=== PATIENT | male | born 1945 | race Caucasian/White ===

== ENCOUNTER 2020-04-14 16:38 | Inpatient (IN) ==
[2020-04-14] MEDS ORDERED: 0.9 % Sodium Chloride 1,000 ML IVC ONE (16:48)
[2020-04-14 17:28] LABS: Basophils % 0.2 %; Hematocrit 36.4 % (37.5-50.1); Hemoglobin 11.2 g/dL (12.9-16.9); Immature Granulocytes % 0.7 % (0-4); Lymphocytes # 0.2 K/mcL (0.6-4.6); Lymphocytes % 2.1 %; Mean Corpuscular HGB Conc 30.8 g/dL (31.6-35.5); Mean Corpuscular Hemoglobin 26.7 pg (28.0-33.3); Mean Corpuscular Volume 86.7 fL (83.0-100.0); Mean Platelet Volume 9.9 fL (9.4-12.4); Monocytes # 0.5 K/mcL (0.0-1.3); Monocytes % 4.4 %; Neutrophils # 9.5 K/mcL (1.6-8.9); Platelet Count 129 K/mcL (140-400); Red Cell Distribution Width 16.2 % (11.5-14.5); Segmented Neutrophils % 92.6 %
[2020-04-14 17:29] LABS: White Blood Count 10.3 K/mcL (4.3-11.1)
[2020-04-14 17:36] LABS: Bacteria,Urine Few per hpf (None-Few); Bilirubin,Urine Negative (Negative); Blood,Urine Negative (Negative); Clarity,Urine Clear (Clear); Color,Urine Yellow (Yellow); Glucose,Urine (UA) 300 mg/dL (Normal); Hyaline Casts,Urine Few per lpf (None Seen); Ketones,Urine Negative (Negative); Leukocyte Esterase,Urine Negative (Negative); Nitrite,Urine Negative (Negative); Protein,Urine >=300 mg/dL (Neg-Trace); RBC,Urine 0-3 per hpf (0-3); Specific Gravity,Urine 1.017 (1.010-1.025); Squamous Epithelial Cell,Urine Few per hpf (None-Few); Urobilinogen,Urine Normal (Normal)
[2020-04-14 17:55] LABS: Alanine Aminotransferase 15 Units/L (7-52); Albumin 3.6 g/dL (3.5-5.7); Albumin/Globulin Ratio 1.2 (1.1-2.2); Alkaline Phosphatase 59 Units/L (34-104); Aspartate Amino Transferase 27 Units/L (13-39); BUN/Creatinine Ratio 17 (6-26); Bilirubin,Total 0.8 mg/dL (0.3-1.0); Blood Urea Nitrogen 36 mg/dL (8-23); Calcium 8.5 mg/dL (8.6-10.3); Carbon Dioxide 21 mEq/L (23-29); Chloride 107 mEq/L (98-107); Globulin 2.9 g/dL (2.4-3.5); Glucose 278 mg/dL (70-105); Osmolality,Calculated 308 (280-300); Potassium 3.5 mEq/L (3.5-5.1); Sodium 140 mEq/L (136-145); Total Protein 6.5 g/dL (6.4-8.9); eGFR For African Americans 36 (> 60); eGFR For Non-African Americans 30 (> 60)
[2020-04-14] MEDS ORDERED: Naloxone 0.4 MG/ML INJ IVP PRN (21:08)
[2020-04-14] MEDS ORDERED: Acetaminophen 325 MG TABLET PO PRN (22:42)
[2020-04-14 23:05] LABS: C-Reactive Protein > 300 mg/L (Less than 10)
[2020-04-15 02:55] LABS: Basophils % 0.1 %; Hematocrit 32.5 % (37.5-50.1); Hemoglobin 10.3 g/dL (12.9-16.9); Immature Granulocytes % 0.5 % (0-4); Lymphocytes # 0.2 K/mcL (0.6-4.6); Lymphocytes % 2.4 %; Mean Corpuscular HGB Conc 31.7 g/dL (31.6-35.5); Mean Corpuscular Hemoglobin 27.3 pg (28.0-33.3); Mean Corpuscular Volume 86.2 fL (83.0-100.0); Mean Platelet Volume 10.5 fL (9.4-12.4); Monocytes # 0.5 K/mcL (0.0-1.3); Monocytes % 5.3 %; Neutrophils # 9.3 K/mcL (1.6-8.9); Platelet Count 122 K/mcL (140-400); Red Blood Count 3.77 M/mcL (4.19-5.50); Red Cell Distribution Width 16.3 % (11.5-14.5); Segmented Neutrophils % 91.7 %; White Blood Count 10.1 K/mcL (4.3-11.1)
[2020-04-15 03:15] LABS: Calcium 8.5 mg/dL (8.6-10.3); Potassium 3.1 mEq/L (3.5-5.1)
[2020-04-15] MEDS ORDERED: Furosemide 40 MG TABLET PO SCH (08:00)
[2020-04-15] MEDS ORDERED: lisinopriL 20 MG TABLET PO SCH (09:00)
[2020-04-15] MEDS: Mycophenolate Sodium (DR) 180 MG TABLET.DR PO SCH ×2 (09:08→21:23)
[2020-04-15] MEDS: hydrALAZINE 25 MG TABLET PO SCH ×4 (09:08→21:23)
[2020-04-15] MEDS: allopurinoL 100 MG TABLET PO SCH (09:09)
[2020-04-15] MEDS: Insulin DETEMIR 100 UNIT/ML X5UNITS SQ SCH (09:09)
[2020-04-15] MEDS: cloNIDine HCL 0.1 MG TABLET PO SCH ×3 (09:09→21:23)
[2020-04-15] MEDS: gemfibroziL 600 MG TABLET PO SCH ×2 (09:09→21:22)
[2020-04-15] MEDS: Metoprolol 100 MG TABLET PO SCH ×2 (09:09→21:22)
[2020-04-15] MEDS: Aspirin Enteric Coated 81 MG Tablet PO SCH (09:09)
[2020-04-15] MEDS: amLODIPine 5 MG TABLET PO SCH (09:09)
[2020-04-15] MEDS: Gabapentin 100 MG CAPSULE PO SCH ×2 (09:09→21:23)
[2020-04-15] MEDS: Cholecalciferol (D-3) 1,000 UNIT (25MCG) TABLET PO SCH (09:09)
[2020-04-15] MEDS: Ammonium Lactate 30 APPL/225 GM BOTTLE TP SCH ×2 (09:10→21:30)
[2020-04-15] MEDS ORDERED: *HR* Dextrose 50 % in Water (Vial) 50 ML VIAL IVP PRN (10:38)
[2020-04-15] MEDS ORDERED: Dextrose Gel 15 GM/37.5 ML TUBE PO PRN ×2 (10:38)
[2020-04-15] MEDS ORDERED: D5% in Water 1,000 ML IVC PRN (10:38)
[2020-04-15] MEDS ORDERED: Insulin LISPRO 300 UNITS/3 ML VIAL SQ SCH ×2 (11:30→21:00)
[2020-04-15] MEDS ORDERED: 0.9 % Sodium Chloride 1,000 ML IVC SCH (16:00)
[2020-04-15] MEDS ORDERED: *HR* OxyCODONE/APAP 5/325 TABLET PO PRN (16:42)
[2020-04-15] MEDS ORDERED: Potassium Effervescent 25 MEQ TABLET.EFF PO ONE (16:44)
[2020-04-15] MEDS: Niacin (24 HR) 500 MG TAB.ER.24H PO SCH (18:06)
[2020-04-15] MEDS: *HR* Heparin 5,000 UNIT/ML VIAL SQ SCH ×2 (18:08→21:30)
[2020-04-15] MEDS: Insulin LISPRO 300 UNITS/3 ML VIAL SQ SCH ×2 (18:09→21:24)
[2020-04-16 02:07] LABS: Basophils % 0.1 %; Eosinophils % 0.1 %; Hemoglobin 9.1 g/dL (12.9-16.9); Immature Granulocytes % 1.5 % (0-4); Lymphocytes # 0.4 K/mcL (0.6-4.6); Lymphocytes % 4.3 %; Mean Corpuscular HGB Conc 30.3 g/dL (31.6-35.5); Mean Corpuscular Hemoglobin 26.2 pg (28.0-33.3); Mean Corpuscular Volume 86.5 fL (83.0-100.0); Mean Platelet Volume 10.2 fL (9.4-12.4); Monocytes # 0.5 K/mcL (0.0-1.3); Monocytes % 5.5 %; Neutrophils # 7.2 K/mcL (1.6-8.9); Platelet Count 120 K/mcL (140-400); Red Blood Count 3.47 M/mcL (4.19-5.50); Segmented Neutrophils % 88.5 %; White Blood Count 8.2 K/mcL (4.3-11.1)
[2020-04-16 02:23] LABS: Calcium 8.4 mg/dL (8.6-10.3); Potassium 3.6 mEq/L (3.5-5.1)
[2020-04-16] MEDS: *HR* Heparin 5,000 UNIT/ML VIAL SQ SCH ×3 (05:31→20:54)
[2020-04-16] MEDS: hydrALAZINE 25 MG TABLET PO SCH ×4 (09:00→20:55)
[2020-04-16] MEDS: Aspirin Enteric Coated 81 MG Tablet PO SCH (09:01)
[2020-04-16] MEDS: Gabapentin 100 MG CAPSULE PO SCH ×2 (09:01→20:54)
[2020-04-16] MEDS: Metoprolol 100 MG TABLET PO SCH ×2 (09:01→20:55)
[2020-04-16] MEDS: gemfibroziL 600 MG TABLET PO SCH ×2 (09:01→20:54)
[2020-04-16] MEDS: cloNIDine HCL 0.1 MG TABLET PO SCH ×3 (09:01→18:34)
[2020-04-16] MEDS: amLODIPine 5 MG TABLET PO SCH (09:02)
[2020-04-16] MEDS: Cholecalciferol (D-3) 1,000 UNIT (25MCG) TABLET PO SCH (09:03)
[2020-04-16] MEDS: Mycophenolate Sodium (DR) 180 MG TABLET.DR PO SCH ×2 (09:09→20:53)
[2020-04-16] MEDS: Insulin LISPRO 300 UNITS/3 ML VIAL SQ SCH ×4 (09:10→20:56)
[2020-04-16] MEDS: allopurinoL 100 MG TABLET PO SCH (09:14)
[2020-04-16] MEDS: Insulin DETEMIR 100 UNIT/ML X5UNITS SQ SCH (09:15)
[2020-04-16] MEDS: 0.9 % Sodium Chloride 1,000 ML IVC SCH ×2 (09:23→23:59)
[2020-04-16] MEDS: Ammonium Lactate 30 APPL/225 GM BOTTLE TP SCH ×2 (09:31→20:56)
[2020-04-16] MEDS: Niacin (24 HR) 500 MG TAB.ER.24H PO SCH (18:34)
[2020-04-17 02:50] LABS: Calcium 8.2 mg/dL (8.6-10.3); Potassium 3.5 mEq/L (3.5-5.1)
[2020-04-17] MEDS: *HR* Heparin 5,000 UNIT/ML VIAL SQ SCH ×2 (05:24→15:56)
[2020-04-17] MEDS: Insulin LISPRO 300 UNITS/3 ML VIAL SQ SCH ×3 (08:19→15:59)
[2020-04-17] MEDS: Mycophenolate Sodium (DR) 180 MG TABLET.DR PO SCH (10:10)
[2020-04-17] MEDS: gemfibroziL 600 MG TABLET PO SCH (10:10)
[2020-04-17] MEDS: Aspirin Enteric Coated 81 MG Tablet PO SCH (10:10)
[2020-04-17] MEDS: cloNIDine HCL 0.1 MG TABLET PO SCH ×2 (10:10→15:55)
[2020-04-17] MEDS: Metoprolol 100 MG TABLET PO SCH (10:10)
[2020-04-17] MEDS: Gabapentin 100 MG CAPSULE PO SCH (10:10)
[2020-04-17] MEDS: amLODIPine 5 MG TABLET PO SCH (10:10)
[2020-04-17] MEDS: Cholecalciferol (D-3) 1,000 UNIT (25MCG) TABLET PO SCH (10:10)
[2020-04-17] MEDS: allopurinoL 100 MG TABLET PO SCH (10:11)
[2020-04-17] MEDS: Insulin DETEMIR 100 UNIT/ML X5UNITS SQ SCH (10:11)
[2020-04-17] MEDS: hydrALAZINE 25 MG TABLET PO SCH ×2 (10:11→12:17)
[2020-04-17] MEDS: Ammonium Lactate 30 APPL/225 GM BOTTLE TP SCH (10:12)
[2020-04-17 15:38] VITALS: BP 144/68
== END 2020-04-17 17:05 | disposition short-term general hospital (02) | DRG 683 ==
LOC: EMEROOARM 16:38 → 2ANU 16:38 → SUATTDRO 04-15 16:46
PROVIDERS: ADMIT Internal Medicine; ATTEND Internal Medicine

== ENCOUNTER 2020-06-03 11:42 | Observation (INO) ==
[2020-06-03 12:29] LABS: Hemoglobin 8.1 g/dL (12.9-16.9)
[2020-06-03 12:31] LABS: Basophils # 0.1 K/mcL (0.0-0.2); Basophils % 1.1 %; Eosinophils # 0.3 K/mcL (0.0-0.6); Eosinophils % 4.8 %; Hematocrit 30.1 % (37.5-50.1); Lymphocytes # 0.6 K/mcL (0.6-4.6); Lymphocytes % 11.1 %; Mean Corpuscular HGB Conc 26.9 g/dL (31.6-35.5); Mean Corpuscular Hemoglobin 26.2 pg (28.0-33.3); Mean Corpuscular Volume 97.4 fL (83.0-100.0); Mean Platelet Volume 9.2 fL (9.4-12.4); Monocytes # 0.4 K/mcL (0.0-1.3); Monocytes % 6.9 %; Neutrophils # 3.9 K/mcL (1.6-8.9); Platelet Count 188 K/mcL (140-400); Red Blood Count 3.09 M/mcL (4.19-5.50); Red Cell Distribution Width 18.5 % (11.5-14.5); Segmented Neutrophils % 75.1 %; White Blood Count 5.2 K/mcL (4.3-11.1)
[2020-06-03 12:38] LABS: INR 1.3; Prothrombin Time 15.1 Seconds (9.4-12.1)
[2020-06-03 12:41] LABS: Activated Partial Thrombo Time 48.3 Seconds (26.0-36.0)
[2020-06-03 13:08] LABS: Alanine Aminotransferase 3 Units/L (7-52); Albumin/Globulin Ratio 0.9 (1.1-2.2); Alkaline Phosphatase 93 Units/L (34-104); Aspartate Amino Transferase 8 Units/L (13-39); BUN/Creatinine Ratio 19 (6-26); Bilirubin,Total 0.3 mg/dL (0.3-1.0); Blood Urea Nitrogen 21 mg/dL (8-23); Calcium 8.6 mg/dL (8.6-10.3); Carbon Dioxide 18 mEq/L (23-29); Chloride 108 mEq/L (98-107); Globulin 3.3 g/dL (2.4-3.5); Glucose 154 mg/dL (70-105); Osmolality,Calculated 288 (280-300); Potassium 4.3 mEq/L (3.5-5.1); Sodium 136 mEq/L (136-145); Total Protein 6.3 g/dL (6.4-8.9); Troponin I < 0.03 ng/mL (< 0.04); eGFR For African Americans > 60 (> 60); eGFR For Non-African Americans > 60 (> 60)
[2020-06-03 13:15] LABS: Platelet Estimate Normal (Normal)
[2020-06-03 13:16] LABS: Anisocytosis 1+ (Not Present)
[2020-06-03] MEDS ORDERED: Naloxone 0.4 MG/ML INJ IVP PRN (14:13)
[2020-06-03] MEDS ORDERED: Ondansetron 4 MG/2 ML VIAL IVP PRN (14:13)
[2020-06-03] MEDS ORDERED: D5% in Water 1,000 ML IVC PRN (14:15)
[2020-06-03] MEDS ORDERED: *HR* Dextrose 50 % in Water (Vial) 50 ML VIAL IVP PRN (14:15)
[2020-06-03] MEDS ORDERED: Dextrose Gel 15 GM/37.5 ML TUBE PO PRN ×2 (14:15)
[2020-06-03 15:46] LABS: Adenovirus Not Detected (Not Detect); Bordetella Pertussis Not Detected (Not Detect); Chlamydophila pneumoniae Not Detected (Not Detect); Coronavirus 229E Not Detected (Not Detect); Coronavirus HKU1 Not Detected (Not Detect); Coronavirus NL63 Not Detected (Not Detect); Coronavirus OC43 Not Detected (Not Detect); Human Metapneumovirus Not Detected (Not Detect); Human Rhinovirus/Enterovirus Not Detected (Not Detect); Influenza A Subtype 2009 H1 Not Detected (Not Detect); Influenza B Not Detected (Not Detect); Mycoplasma pneumoniae Not Detected (Not Detect); Parainfluenza Virus 1 Not Detected (Not Detect); Parainfluenza Virus 2 Not Detected (Not Detect); Parainfluenza Virus 3 Not Detected (Not Detect); Parainfluenza Virus 4 Not Detected (Not Detect); Respiratory Syncytial Virus Not Detected (Not Detect)
[2020-06-03] MEDS: Ringers Solution, Lactated 1,000 ML IVC SCH (17:28)
[2020-06-03] MEDS: Pantoprazole 40 MG VIAL IVP SCH ×2 (17:30→18:28)
[2020-06-03] MEDS: Insulin LISPRO 300 UNITS/3 ML VIAL SQ SCH (17:31)
[2020-06-03] MEDS ORDERED: SODIUM CHLORIDE/NAHCO3/KCL/PEG 4,000 ML SOLN.RECON PO ONE (18:00)
[2020-06-03 19:14] LABS: Hematocrit 27.9 % (37.5-50.1); Hemoglobin 8.1 g/dL (12.9-16.9)
[2020-06-04] MEDS ORDERED: SODIUM CHLORIDE/NAHCO3/KCL/PEG 4,000 ML SOLN.RECON PO ONE (02:00)
[2020-06-04 05:27] LABS: Hemoglobin 7.7 g/dL (12.9-16.9); Platelet Count 194 K/mcL (140-400); Red Cell Distribution Width 18.1 % (11.5-14.5)
[2020-06-04 05:29] LABS: Hematocrit 26.4 % (37.5-50.1); Mean Corpuscular HGB Conc 29.2 g/dL (31.6-35.5); Mean Corpuscular Hemoglobin 27.1 pg (28.0-33.3); Mean Platelet Volume 9.4 fL (9.4-12.4); Red Blood Count 2.84 M/mcL (4.19-5.50); White Blood Count 5.6 K/mcL (4.3-11.1)
[2020-06-04 05:43] LABS: BUN/Creatinine Ratio 16 (6-26); Blood Urea Nitrogen 16 mg/dL (8-23); Calcium 8.4 mg/dL (8.6-10.3); Carbon Dioxide 19 mEq/L (23-29); Chloride 108 mEq/L (98-107); Glucose 116 mg/dL (70-105); Osmolality,Calculated 286 (280-300); Potassium 4.2 mEq/L (3.5-5.1); Sodium 137 mEq/L (136-145); eGFR For African Americans > 60 (> 60); eGFR For Non-African Americans > 60 (> 60)
[2020-06-04] MEDS: Pantoprazole 40 MG VIAL IVP SCH (06:23)
[2020-06-04] MEDS: Insulin LISPRO 300 UNITS/3 ML VIAL SQ SCH ×2 (07:33→11:51)
[2020-06-04] MEDS ORDERED: Lidocaine -MPF 2% 2 ML VIAL ONE (09:20)
[2020-06-04] MEDS ORDERED: *HR* Propofol 200 MG/20 ML VIAL IVP ONE ×2 (09:20→09:53)
[2020-06-04] MEDS ORDERED: PENICILLIN POTASSIUM IVPB SCH (09:45)
[2020-06-04] MEDS ORDERED: SODIUM CHLORIDE 0.9% IVPB SCH (09:45)
[2020-06-04] MEDS: Ringers Solution, Lactated 1,000 ML IVC SCH (10:39)
[2020-06-04 13:26] VITALS: BP 159/68
== END 2020-06-04 13:55 ==
LOC: EMEROOARM 11:42 → 2ANU 11:42 → SUATTDRO 16:27 → 2ANU 16:56
PROVIDERS: ADMIT Student in an Organized Health Care Education/Training Program; ATTEND Internal Medicine

== ENCOUNTER 2020-07-20 12:09 | Inpatient (IN) ==
[2020-07-20 13:05] LABS: INR 1.9; Prothrombin Time 22.1 Seconds (9.4-12.1)
[2020-07-20 13:07] LABS: Activated Partial Thrombo Time 51.6 Seconds (26.0-36.0); Hemoglobin 6.9 g/dL (12.9-16.9); Mean Platelet Volume 9.4 fL (9.4-12.4)
[2020-07-20 13:08] LABS: Basophils % 0.5 %; Hematocrit 25.5 % (37.5-50.1); Immature Granulocytes % 0.5 % (0-4); Lymphocytes # 0.5 K/mcL (0.6-4.6); Lymphocytes % 10.9 %; Mean Corpuscular HGB Conc 27.1 g/dL (31.6-35.5); Mean Corpuscular Hemoglobin 25.5 pg (28.0-33.3); Mean Corpuscular Volume 94.1 fL (83.0-100.0); Monocytes # 0.3 K/mcL (0.0-1.3); Monocytes % 7.8 %; Neutrophils # 3.4 K/mcL (1.6-8.9); Platelet Count 190 K/mcL (140-400); Red Blood Count 2.71 M/mcL (4.19-5.50); Red Cell Distribution Width 17.7 % (11.5-14.5); Segmented Neutrophils % 80.3 %; White Blood Count 4.2 K/mcL (4.3-11.1)
[2020-07-20 13:20] LABS: Albumin 3.3 g/dL (3.5-5.7); Bilirubin,Total 0.3 mg/dL (0.3-1.0); Calcium 8.6 mg/dL (8.6-10.3); Globulin 3.4 g/dL (2.4-3.5); Potassium 5.1 mEq/L (3.5-5.1); Total Protein 6.7 g/dL (6.4-8.9)
[2020-07-20 13:32] LABS: Platelet Estimate Normal (Normal)
[2020-07-20 13:34] LABS: Anisocytosis 1+ (Not Present); Hypochromasia Present (Not Present)
[2020-07-20 14:10] LABS: Bacteria,Urine Few per hpf (None-Few); Bilirubin,Urine Negative (Negative); Blood,Urine Negative (Negative); Clarity,Urine Clear (Clear); Color,Urine Yellow (Yellow); Glucose,Urine (UA) Normal (Normal); Ketones,Urine Trace mg/dL (Negative); Leukocyte Esterase,Urine Negative (Negative); Mucus,Urine Few per lpf (None-Few); Nitrite,Urine Negative (Negative); Protein,Urine 100 mg/dL (Neg-Trace); RBC,Urine 0-3 per hpf (0-3); Specific Gravity,Urine 1.019 (1.010-1.025); Urobilinogen,Urine Normal (Normal); WBC,Urine 0-3 per hpf (0-3)
[2020-07-20 15:25] LABS: Adenovirus Not Detected (Not Detect); Coronavirus 229E Not Detected (Not Detect); Coronavirus HKU1 Not Detected (Not Detect); Coronavirus NL63 Not Detected (Not Detect); Coronavirus OC43 Not Detected (Not Detect)
[2020-07-20 15:26] LABS: Bordetella Pertussis Not Detected (Not Detect); Chlamydophila pneumoniae Not Detected (Not Detect); Human Metapneumovirus Not Detected (Not Detect); Human Rhinovirus/Enterovirus Not Detected (Not Detect); Influenza A Subtype 2009 H1 Not Detected (Not Detect); Influenza B Not Detected (Not Detect); Mycoplasma pneumoniae Not Detected (Not Detect); Parainfluenza Virus 1 Not Detected (Not Detect); Parainfluenza Virus 2 Not Detected (Not Detect); Parainfluenza Virus 3 Not Detected (Not Detect); Parainfluenza Virus 4 Not Detected (Not Detect); Respiratory Syncytial Virus Not Detected (Not Detect); SARS-CoV-2 DETECTED (Not Detect)
[2020-07-20] MEDS ORDERED: Ondansetron 4 MG/2 ML VIAL IVP PRN (15:51)
[2020-07-20] MEDS ORDERED: Naloxone 0.4 MG/ML INJ IVP PRN (15:51)
[2020-07-20] MEDS ORDERED: polyethylene glycoL 3350 17 GM POWD.PACK PO PRN (15:54)
[2020-07-20] MEDS ORDERED: 0.9 % Sodium Chloride 1,000 ML IVC SCH (16:00)
[2020-07-20] MEDS ORDERED: D5% in Water 1,000 ML IVC PRN (16:48)
[2020-07-20] MEDS ORDERED: *HR* Dextrose 50 % in Water (Vial) 50 ML VIAL IVP PRN (16:48)
[2020-07-20] MEDS ORDERED: Dextrose Gel 15 GM/37.5 ML TUBE PO PRN ×2 (16:48)
[2020-07-20] MEDS: Dexamethasone 4 MG/ML VIAL IVP SCH (17:41)
[2020-07-20] MEDS: Niacin (24 HR) 500 MG TAB.ER.24H PO SCH (17:42)
[2020-07-20] MEDS: Pantoprazole 40 MG VIAL IVP SCH (17:43)
[2020-07-20] MEDS ORDERED: 0.9 % Sodium Chloride 250 ML ONE ×2 (17:46→22:41)
[2020-07-20] MEDS: Acetaminophen 325 MG TABLET PO SCH (17:59)
[2020-07-20] MEDS ORDERED: Everolimus [Zortress] 0.5 MG PO SCH (18:00)
[2020-07-20] MEDS: cefTRIAXone 1,000 MG in Water for inj. (sterile) 10 ML IVP SCH (18:53)
[2020-07-20] MEDS ORDERED: Azithromycin 500 MG in 0.9 % Sodium Chloride 250 ML IVPB SCH (19:00)
[2020-07-20] MEDS ORDERED: EVEROLIMUS 0.5 MG TABLET PO SCH (22:00)
[2020-07-20] MEDS: gemfibroziL 600 MG TABLET PO SCH (22:37)
[2020-07-20] MEDS: hydrALAZINE 25 MG TABLET PO SCH (22:37)
[2020-07-20] MEDS: Gabapentin 100 MG CAPSULE PO SCH (22:37)
[2020-07-20] MEDS: Latanoprost 2.5 ML BOTTLE LEFT EYE SCH (22:38)
[2020-07-20] MEDS: EVEROLIMUS 0.5 MG TABLET PO SCH (22:38)
[2020-07-20] MEDS: Insulin DETEMIR 100 UNIT/ML X5UNITS SQ SCH (22:45)
[2020-07-20] MEDS: Insulin LISPRO 300 UNITS/3 ML VIAL SQ SCH (23:57)
[2020-07-21] MEDS: Acetaminophen 325 MG TABLET PO SCH ×5 (00:24→22:54)
[2020-07-21] MEDS: Mycophenolate Sodium (DR) 180 MG TABLET.DR PO SCH ×3 (00:24→20:22)
[2020-07-21 04:07] LABS: Hemoglobin 7.6 g/dL (12.9-16.9); Immature Granulocytes % 0.5 % (0-4); Mean Platelet Volume 9.2 fL (9.4-12.4)
[2020-07-21 04:09] LABS: Lymphocytes # 0.2 K/mcL (0.6-4.6); Lymphocytes % 9.1 %; Mean Corpuscular HGB Conc 28.1 g/dL (31.6-35.5); Mean Corpuscular Hemoglobin 26.2 pg (28.0-33.3); Mean Corpuscular Volume 93.1 fL (83.0-100.0); Monocytes # 0.1 K/mcL (0.0-1.3); Monocytes % 3.7 %; Neutrophils # 1.7 K/mcL (1.6-8.9); Platelet Count 155 K/mcL (140-400); Red Cell Distribution Width 17.2 % (11.5-14.5); Segmented Neutrophils % 86.7 %; White Blood Count 1.9 K/mcL (4.3-11.1)
[2020-07-21 04:25] LABS: Platelet Estimate Normal (Normal)
[2020-07-21 04:26] LABS: Anisocytosis 1+ (Not Present); Calcium 7.9 mg/dL (8.6-10.3); Hypochromasia Present (Not Present); Magnesium 2.2 mg/dL (1.6-2.6); Phosphorous 5.3 mg/dL (2.7-4.5); Potassium 5.3 mEq/L (3.5-5.1)
[2020-07-21] MEDS: Pantoprazole 40 MG VIAL IVP SCH ×2 (06:28→17:04)
[2020-07-21] MEDS: amLODIPine 5 MG TABLET PO SCH ×2 (07:53→08:14)
[2020-07-21] MEDS: *HR* Amiodarone 200 MG TABLET PO SCH (07:53)
[2020-07-21] MEDS: allopurinoL 100 MG TABLET PO SCH (07:53)
[2020-07-21] MEDS: hydrALAZINE 25 MG TABLET PO SCH ×5 (07:54→21:57)
[2020-07-21] MEDS: Gabapentin 100 MG CAPSULE PO SCH ×2 (07:54→20:22)
[2020-07-21] MEDS: Cholecalciferol (D-3) 1,000 UNIT (25MCG) TABLET PO SCH (07:54)
[2020-07-21] MEDS: lisinopriL 20 MG TABLET PO SCH ×2 (07:54→08:14)
[2020-07-21] MEDS: cefTRIAXone 1,000 MG in Water for inj. (sterile) 10 ML IVP SCH (07:55)
[2020-07-21] MEDS: gemfibroziL 600 MG TABLET PO SCH ×2 (07:55→20:22)
[2020-07-21] MEDS: EVEROLIMUS 0.5 MG TABLET PO SCH ×2 (07:55→17:04)
[2020-07-21] MEDS: Dexamethasone 4 MG/ML VIAL IVP SCH (07:55)
[2020-07-21] MEDS: Insulin LISPRO 300 UNITS/3 ML VIAL SQ SCH ×4 (08:12→20:54)
[2020-07-21] MEDS ORDERED: Furosemide 20 MG/2 ML VIAL IVP ONE (10:26)
[2020-07-21] MEDS: Doxycycline 100 MG in 0.9 % Sodium Chloride Mini Bag 100 ML IVPB SCH (17:04)
[2020-07-21] MEDS: Niacin (24 HR) 500 MG TAB.ER.24H PO SCH (17:06)
[2020-07-21] MEDS: Ipratropium 1 PUFF INHALER IH SCH ×2 (20:06→23:17)
[2020-07-21] MEDS: Insulin DETEMIR 100 UNIT/ML X5UNITS SQ SCH (20:25)
[2020-07-21] MEDS: Latanoprost 2.5 ML BOTTLE LEFT EYE SCH (20:55)
[2020-07-21] MEDS: *HR* OxyCODONE Immed Rel 5 MG TABLET PO PRN (22:49)
[2020-07-22] MEDS: Ipratropium 1 PUFF INHALER IH SCH ×4 (03:48→22:10)
[2020-07-22] MEDS: Pantoprazole 40 MG VIAL IVP SCH ×2 (05:08→17:23)
[2020-07-22] MEDS: Acetaminophen 325 MG TABLET PO SCH ×2 (05:09→12:19)
[2020-07-22 05:39] LABS: Hematocrit 29.3 % (37.5-50.1); Platelet Count 180 K/mcL (140-400); Red Cell Distribution Width 17.1 % (11.5-14.5)
[2020-07-22 05:40] LABS: Hemoglobin 8.2 g/dL (12.9-16.9); Mean Corpuscular Hemoglobin 25.2 pg (28.0-33.3); Mean Corpuscular Volume 90.2 fL (83.0-100.0); Mean Platelet Volume 9.5 fL (9.4-12.4); Red Blood Count 3.25 M/mcL (4.19-5.50); White Blood Count 2.7 K/mcL (4.3-11.1)
[2020-07-22 06:09] LABS: Calcium 8.2 mg/dL (8.6-10.3); Magnesium 2.3 mg/dL (1.6-2.6); Phosphorous 4.5 mg/dL (2.7-4.5); Potassium 4.4 mEq/L (3.5-5.1)
[2020-07-22] MEDS: Doxycycline 100 MG in 0.9 % Sodium Chloride Mini Bag 100 ML IVPB SCH ×2 (06:29→17:20)
[2020-07-22] MEDS: hydrALAZINE 25 MG TABLET PO SCH ×3 (08:03→20:19)
[2020-07-22] MEDS: Insulin LISPRO 300 UNITS/3 ML VIAL SQ SCH ×4 (08:14→20:23)
[2020-07-22] MEDS: Gabapentin 100 MG CAPSULE PO SCH ×2 (08:15→20:22)
[2020-07-22] MEDS: *HR* Amiodarone 200 MG TABLET PO SCH (08:15)
[2020-07-22] MEDS: Mycophenolate Sodium (DR) 180 MG TABLET.DR PO SCH ×2 (08:15→20:22)
[2020-07-22] MEDS: amLODIPine 5 MG TABLET PO SCH (08:15)
[2020-07-22] MEDS: gemfibroziL 600 MG TABLET PO SCH ×2 (08:16→20:22)
[2020-07-22] MEDS: Cholecalciferol (D-3) 1,000 UNIT (25MCG) TABLET PO SCH (08:16)
[2020-07-22] MEDS: Dexamethasone 4 MG/ML VIAL IVP SCH (08:16)
[2020-07-22] MEDS: allopurinoL 100 MG TABLET PO SCH (08:16)
[2020-07-22] MEDS: cefTRIAXone 1,000 MG in Water for inj. (sterile) 10 ML IVP SCH (08:17)
[2020-07-22] MEDS: EVEROLIMUS 0.5 MG TABLET PO SCH ×2 (08:20→17:29)
[2020-07-22] MEDS ORDERED: 0.9 % Sodium Chloride 1,000 ML IVC SCH (12:30)
[2020-07-22] MEDS ORDERED: Benzonatate 100 MG CAPSULE PO PRN (16:29)
[2020-07-22] MEDS: Niacin (24 HR) 500 MG TAB.ER.24H PO SCH (17:23)
[2020-07-22] MEDS ORDERED: Acetaminophen 325 MG TABLET PO PRN (18:00)
[2020-07-22] MEDS: *HR* OxyCODONE Immed Rel 5 MG TABLET PO PRN (18:13)
[2020-07-22 18:18] LABS: Acetaminophen < 10 mcg/mL (10-20); Salicylate < 2.5 mg/dL (15.0-30.0)
[2020-07-22] MEDS: Latanoprost 2.5 ML BOTTLE LEFT EYE SCH (20:23)
[2020-07-22] MEDS ORDERED: Insulin DETEMIR 100 UNIT/ML X5UNITS SQ SCH (21:00)
[2020-07-22] MEDS ORDERED: Sodium Bicarbonate 75 MEQ in 0.45 % Sodium Chloride 1,000 ML IVC SCH (21:45)
[2020-07-22 22:43] LABS: ABG Base Excess -9 mEq/L (-2 to 3); ABG HCO3 16 mEq/L (21-27); ABG Oxygen Saturation 84 % (95-98); ABG PCO2 27 mmHg (35-45); ABG PH 7.38 pH Units (7.32-7.45); ABG PO2 49 mmHg (85-104); ABG TCO2 17 mEq/L (20-26)
[2020-07-23] MEDS: Ipratropium 1 PUFF INHALER IH SCH ×2 (03:57→09:50)
[2020-07-23] MEDS: Doxycycline 100 MG in 0.9 % Sodium Chloride Mini Bag 100 ML IVPB SCH (05:05)
[2020-07-23] MEDS: Pantoprazole 40 MG VIAL IVP SCH (05:06)
[2020-07-23 06:33] LABS: Hematocrit 27.8 % (37.5-50.1); Hemoglobin 7.7 g/dL (12.9-16.9); Mean Corpuscular HGB Conc 27.7 g/dL (31.6-35.5); Mean Corpuscular Hemoglobin 25.3 pg (28.0-33.3); Mean Corpuscular Volume 91.4 fL (83.0-100.0); Mean Platelet Volume 9.8 fL (9.4-12.4); Platelet Count 176 K/mcL (140-400); Red Blood Count 3.04 M/mcL (4.19-5.50); Red Cell Distribution Width 17.2 % (11.5-14.5)
[2020-07-23 06:35] LABS: White Blood Count 5.1 K/mcL (4.3-11.1)
[2020-07-23 06:52] LABS: Calcium 7.9 mg/dL (8.6-10.3); Potassium 4.4 mEq/L (3.5-5.1)
[2020-07-23 06:55] LABS: % Iron Saturation 15 % (20-55); Iron 30 mcg/dL (65-175); Transferrin 145 mg/dL (203-362)
[2020-07-23 07:11] LABS: Ferritin > 1500 ng/mL (20-250)
[2020-07-23 07:16] LABS: Folate 8.2 ng/mL (3.0-16.0)
[2020-07-23] MEDS: amLODIPine 5 MG TABLET PO SCH (08:05)
[2020-07-23] MEDS: Mycophenolate Sodium (DR) 180 MG TABLET.DR PO SCH (08:06)
[2020-07-23] MEDS: allopurinoL 100 MG TABLET PO SCH (08:06)
[2020-07-23] MEDS: Gabapentin 100 MG CAPSULE PO SCH (08:06)
[2020-07-23] MEDS: Cholecalciferol (D-3) 1,000 UNIT (25MCG) TABLET PO SCH (08:06)
[2020-07-23] MEDS: *HR* Amiodarone 200 MG TABLET PO SCH (08:06)
[2020-07-23] MEDS: gemfibroziL 600 MG TABLET PO SCH (08:07)
[2020-07-23] MEDS: hydrALAZINE 25 MG TABLET PO SCH (08:07)
[2020-07-23] MEDS: Dexamethasone 4 MG/ML VIAL IVP SCH (08:07)
[2020-07-23] MEDS: cefTRIAXone 1,000 MG in Water for inj. (sterile) 10 ML IVP SCH (08:08)
[2020-07-23] MEDS: Insulin LISPRO 300 UNITS/3 ML VIAL SQ SCH ×2 (08:10→12:08)
[2020-07-23] MEDS: EVEROLIMUS 0.5 MG TABLET PO SCH (08:11)
[2020-07-23 12:16] LABS: Hematocrit 29.3 % (37.5-50.1); Hemoglobin 8.3 g/dL (12.9-16.9)
[2020-07-23 13:21] VITALS: BP 147/71
== END 2020-07-23 13:40 | disposition short-term general hospital (02) | DRG 177 ==
LOC: EMEROOARM 12:09 → 2NENU 12:09 → SUATTDRO 15:46 → 2NENU 17:24
PROVIDERS: ADMIT Pharmacist; ATTEND Internal Medicine

== ENCOUNTER 2020-11-22 17:48 | Inpatient (IN) ==
[2020-11-22 19:18] LABS: Basophils # 0.1 K/mcL (0.0-0.2); Basophils % 0.4 %; Eosinophils # 0.1 K/mcL (0.0-0.6); Eosinophils % 0.3 %; Hematocrit 32.5 % (37.5-50.1); Lymphocytes # 0.5 K/mcL (0.6-4.6); Lymphocytes % 3.1 %; Mean Corpuscular HGB Conc 30.8 g/dL (31.6-35.5); Mean Corpuscular Hemoglobin 26.9 pg (28.0-33.3); Mean Corpuscular Volume 87.4 fL (83.0-100.0); Mean Platelet Volume 10.5 fL (9.4-12.4); Monocytes % 6.6 %; Neutrophils # 13.3 K/mcL (1.6-8.9); Platelet Count 171 K/mcL (140-400); Red Blood Count 3.72 M/mcL (4.19-5.50); Red Cell Distribution Width 17.6 % (11.5-14.5); Segmented Neutrophils % 88.6 %
[2020-11-22 19:38] LABS: Albumin 3.6 g/dL (3.5-5.7); Bilirubin,Total 0.6 mg/dL (0.3-1.0); Calcium 9.3 mg/dL (8.6-10.3); Globulin 3.6 g/dL (2.4-3.5); Potassium 3.9 mEq/L (3.5-5.1); Total Protein 7.2 g/dL (6.4-8.9)
[2020-11-22] MEDS ORDERED: cefTRIAXone 1,000 MG in Water for inj. (sterile) 10 ML IVP ONE (19:53)
[2020-11-22] MEDS ORDERED: Piperacillin/Tazobactam 3.375 GM in Water for inj. (sterile) 20 ML IVP ONE (19:54)
[2020-11-22] MEDS ORDERED: Vancomycin 1,500 MG/265 ML IV.SOLN IVPB ONE (20:00)
[2020-11-22 21:06] LABS: Amorphous Sediment,Urine Few per hpf (None-Few); Bacteria,Urine Few per hpf (None-Few); Bilirubin,Urine Negative (Negative); Blood,Urine Moderate (Negative); Clarity,Urine Turbid (Clear); Color,Urine Yellow (Yellow); Glucose,Urine (UA) Normal (Normal); Ketones,Urine Negative (Negative); Leukocyte Esterase,Urine Large (Negative); Mucus,Urine Few per lpf (None-Few); Nitrite,Urine Positive (Negative); Protein,Urine 100 mg/dL (Neg-Trace); RBC,Urine 15-30 per hpf (0-3); Specific Gravity,Urine 1.015 (1.010-1.025); Squamous Epithelial Cell,Urine Few per hpf (None-Few); Urobilinogen,Urine Normal (Normal); WBC,Urine TNTC per hpf (0-3)
[2020-11-22 21:12] LABS: Adenovirus Not Detected (Not Detect); Bordetella Pertussis Not Detected (Not Detect); Chlamydophila pneumoniae Not Detected (Not Detect); Coronavirus 229E Not Detected (Not Detect); Coronavirus HKU1 Not Detected (Not Detect); Coronavirus NL63 Not Detected (Not Detect); Coronavirus OC43 Not Detected (Not Detect); Human Metapneumovirus Not Detected (Not Detect); Human Rhinovirus/Enterovirus DETECTED (Not Detect); Influenza A Subtype 2009 H1 Not Detected (Not Detect); Influenza B Not Detected (Not Detect); Mycoplasma pneumoniae Not Detected (Not Detect); Parainfluenza Virus 1 Not Detected (Not Detect); Parainfluenza Virus 2 Not Detected (Not Detect); Parainfluenza Virus 3 Not Detected (Not Detect); Parainfluenza Virus 4 Not Detected (Not Detect); Respiratory Syncytial Virus Not Detected (Not Detect); SARS-CoV-2 Not Detected (Not Detect)
[2020-11-22] MEDS ORDERED: D5% in Water 1,000 ML IVC PRN (21:29)
[2020-11-22] MEDS ORDERED: Dextrose Gel 15 GM/37.5 ML TUBE PO PRN ×2 (21:29)
[2020-11-22] MEDS ORDERED: *HR* Dextrose 50 % in Water (Vial) 50 ML VIAL IVP PRN (21:29)
[2020-11-22] MEDS ORDERED: Naloxone 0.4 MG/ML INJ IVP PRN (21:33)
[2020-11-22] MEDS ORDERED: Ondansetron 4 MG/2 ML VIAL IVP PRN (21:33)
[2020-11-22] MEDS ORDERED: Acetaminophen 325 MG TABLET PO PRN (21:33)
[2020-11-22] MEDS ORDERED: 0.9 % Sodium Chloride 1,000 ML IVC SCH (21:45)
[2020-11-22] MEDS ORDERED: polyethylene glycoL 3350 17 GM POWD.PACK PO PRN (22:03)
[2020-11-22] MEDS: Insulin LISPRO 300 UNITS/3 ML VIAL SUBQ SCH (23:21)
[2020-11-22] MEDS: Apixaban 5 MG TABLET PO SCH (23:50)
[2020-11-22] MEDS ORDERED: *HR* OxyCODONE/APAP 5/325 TABLET PO PRN (23:51)
[2020-11-23 04:44] LABS: Hematocrit 31.9 % (37.5-50.1); Hemoglobin 9.6 g/dL (12.9-16.9); Mean Corpuscular HGB Conc 30.1 g/dL (31.6-35.5); Mean Corpuscular Volume 89.9 fL (83.0-100.0); Mean Platelet Volume 10.2 fL (9.4-12.4); Platelet Count 156 K/mcL (140-400); Red Blood Count 3.55 M/mcL (4.19-5.50); Red Cell Distribution Width 17.3 % (11.5-14.5); White Blood Count 9.2 K/mcL (4.3-11.1)
[2020-11-23 04:53] LABS: INR 1.9
[2020-11-23 04:56] LABS: Activated Partial Thrombo Time 40.9 Seconds (26.0-36.0)
[2020-11-23 05:05] LABS: Chol/HDL Ratio 4.9 (0-4.9); Potassium 3.6 mEq/L (3.5-5.1)
[2020-11-23 05:18] LABS: Thyroid Stimulating Hormone 35.426 mcIU/mL (0.340-5.600)
[2020-11-23] MEDS: Piperacillin/Tazobactam 3.375 GM in 0.9 % Sodium Chloride Mini Bag 100 ML IVPB SCH ×3 (05:20→20:22)
[2020-11-23 05:22] LABS: Estimated Average Glucose 143 mg/dl; Hemoglobin A1C 6.6 %
[2020-11-23] MEDS: Insulin LISPRO 300 UNITS/3 ML VIAL SUBQ SCH ×7 (09:16→20:34)
[2020-11-23] MEDS: allopurinoL 100 MG TABLET PO SCH (09:17)
[2020-11-23] MEDS: carvediloL 25 MG TABLET PO SCH ×2 (09:18→18:19)
[2020-11-23] MEDS: *HR* Amiodarone 200 MG TABLET PO SCH (09:18)
[2020-11-23] MEDS: Aspirin Enteric Coated 81 MG Tablet PO SCH (09:18)
[2020-11-23] MEDS: Gabapentin 100 MG CAPSULE PO SCH ×2 (09:18→20:21)
[2020-11-23] MEDS: amLODIPine 5 MG TABLET PO SCH (09:18)
[2020-11-23] MEDS: Apixaban 5 MG TABLET PO SCH ×2 (09:18→22:27)
[2020-11-23] MEDS: Ascorbic Acid 500 MG TABLET PO SCH (09:18)
[2020-11-23] MEDS: Cholecalciferol (D-3) 1,000 UNIT (25MCG) TABLET PO SCH ×2 (09:18→20:22)
[2020-11-23] MEDS: predniSONE 5 MG TABLET PO SCH (09:18)
[2020-11-23] MEDS: Furosemide 40 MG TABLET PO SCH (09:18)
[2020-11-23] MEDS: lisinopriL 20 MG TABLET PO SCH (09:18)
[2020-11-23] MEDS: gemfibroziL 600 MG TABLET PO SCH ×2 (09:31→20:21)
[2020-11-23] MEDS: (Everolimus [Zortress] 0.5 MG) PO SCH ×2 (12:24→20:22)
[2020-11-23] MEDS ORDERED: Vancomycin 1,250 MG/262.5 ML IV.SOLN IVPB SCH (20:00)
[2020-11-23] MEDS: Latanoprost 2.5 ML BOTTLE LEFT EYE SCH (22:27)
[2020-11-24 02:25] LABS: Hematocrit 29.4 % (37.5-50.1); Hemoglobin 9.2 g/dL (12.9-16.9); Mean Corpuscular HGB Conc 31.3 g/dL (31.6-35.5); Mean Corpuscular Volume 89.6 fL (83.0-100.0); Mean Platelet Volume 10.7 fL (9.4-12.4); Platelet Count 153 K/mcL (140-400); Red Blood Count 3.28 M/mcL (4.19-5.50); Red Cell Distribution Width 17.4 % (11.5-14.5); White Blood Count 6.5 K/mcL (4.3-11.1)
[2020-11-24 02:49] LABS: Calcium 8.4 mg/dL (8.6-10.3); Potassium 3.6 mEq/L (3.5-5.1)
[2020-11-24] MEDS: Piperacillin/Tazobactam 3.375 GM in 0.9 % Sodium Chloride Mini Bag 100 ML IVPB SCH ×3 (05:17→21:25)
[2020-11-24] MEDS: Aspirin Enteric Coated 81 MG Tablet PO SCH (08:16)
[2020-11-24] MEDS: lisinopriL 20 MG TABLET PO SCH (08:16)
[2020-11-24] MEDS: allopurinoL 100 MG TABLET PO SCH (08:16)
[2020-11-24] MEDS: *HR* Amiodarone 200 MG TABLET PO SCH (08:16)
[2020-11-24] MEDS: carvediloL 25 MG TABLET PO SCH ×2 (08:16→17:43)
[2020-11-24] MEDS: Gabapentin 100 MG CAPSULE PO SCH ×2 (08:16→21:27)
[2020-11-24] MEDS: Ascorbic Acid 500 MG TABLET PO SCH (08:16)
[2020-11-24] MEDS: Furosemide 40 MG TABLET PO SCH (08:17)
[2020-11-24] MEDS: amLODIPine 5 MG TABLET PO SCH (08:17)
[2020-11-24] MEDS: predniSONE 5 MG TABLET PO SCH (08:17)
[2020-11-24] MEDS: Cholecalciferol (D-3) 1,000 UNIT (25MCG) TABLET PO SCH ×2 (08:17→21:26)
[2020-11-24] MEDS: gemfibroziL 600 MG TABLET PO SCH ×2 (08:17→21:26)
[2020-11-24] MEDS: (Everolimus [Zortress] 0.5 MG) PO SCH ×2 (08:18→21:27)
[2020-11-24] MEDS: Insulin LISPRO 300 UNITS/3 ML VIAL SUBQ SCH ×7 (08:22→21:26)
[2020-11-24] MEDS: Apixaban 5 MG TABLET PO SCH ×2 (11:33→21:31)
[2020-11-24] MEDS: polyethylene glycoL 3350 17 GM POWD.PACK PO SCH (11:33)
[2020-11-24] MEDS: Latanoprost 2.5 ML BOTTLE LEFT EYE SCH (21:28)
[2020-11-25 02:35] LABS: Basophils % 0.1 %; Eosinophils # 0.2 K/mcL (0.0-0.6); Eosinophils % 2.1 %; Hematocrit 28.3 % (37.5-50.1); Hemoglobin 8.7 g/dL (12.9-16.9); Immature Granulocytes % 0.6 % (0-4); Lymphocytes # 0.2 K/mcL (0.6-4.6); Lymphocytes % 2.6 %; Mean Corpuscular HGB Conc 30.7 g/dL (31.6-35.5); Mean Corpuscular Hemoglobin 27.5 pg (28.0-33.3); Mean Corpuscular Volume 89.6 fL (83.0-100.0); Mean Platelet Volume 10.8 fL (9.4-12.4); Monocytes # 0.6 K/mcL (0.0-1.3); Monocytes % 7.7 %; Neutrophils # 6.3 K/mcL (1.6-8.9); Platelet Count 158 K/mcL (140-400); Red Blood Count 3.16 M/mcL (4.19-5.50); Red Cell Distribution Width 17.5 % (11.5-14.5); Segmented Neutrophils % 86.9 %; White Blood Count 7.3 K/mcL (4.3-11.1)
[2020-11-25 02:50] LABS: Calcium 8.4 mg/dL (8.6-10.3); Potassium 3.2 mEq/L (3.5-5.1)
[2020-11-25] MEDS: Piperacillin/Tazobactam 3.375 GM in 0.9 % Sodium Chloride Mini Bag 100 ML IVPB SCH ×3 (03:14→20:49)
[2020-11-25] MEDS: Insulin LISPRO 300 UNITS/3 ML VIAL SUBQ SCH ×7 (08:51→20:52)
[2020-11-25] MEDS: (Everolimus [Zortress] 0.5 MG) PO SCH ×3 (08:52→20:49)
[2020-11-25] MEDS: allopurinoL 100 MG TABLET PO SCH (09:02)
[2020-11-25] MEDS: polyethylene glycoL 3350 17 GM POWD.PACK PO SCH (09:02)
[2020-11-25] MEDS: Cholecalciferol (D-3) 1,000 UNIT (25MCG) TABLET PO SCH ×2 (09:02→20:50)
[2020-11-25] MEDS: gemfibroziL 600 MG TABLET PO SCH ×2 (09:03→20:51)
[2020-11-25] MEDS: amLODIPine 5 MG TABLET PO SCH (09:03)
[2020-11-25] MEDS: Gabapentin 100 MG CAPSULE PO SCH ×2 (09:03→20:50)
[2020-11-25] MEDS: predniSONE 5 MG TABLET PO SCH (09:03)
[2020-11-25] MEDS: Ascorbic Acid 500 MG TABLET PO SCH (09:03)
[2020-11-25] MEDS: carvediloL 25 MG TABLET PO SCH ×2 (09:03→16:07)
[2020-11-25] MEDS: *HR* Amiodarone 200 MG TABLET PO SCH (09:03)
[2020-11-25] MEDS: Apixaban 5 MG TABLET PO SCH ×2 (09:04→21:31)
[2020-11-25] MEDS: Aspirin Enteric Coated 81 MG Tablet PO SCH (09:04)
[2020-11-25] MEDS ORDERED: Ringers Solution, Lactated 500 ML IVC SCH (12:30)
[2020-11-25] MEDS: Latanoprost 2.5 ML BOTTLE LEFT EYE SCH (20:49)
[2020-11-26 02:24] LABS: Basophils % 0.2 %; Eosinophils # 0.2 K/mcL (0.0-0.6); Eosinophils % 2.7 %; Hematocrit 29.5 % (37.5-50.1); Hemoglobin 8.9 g/dL (12.9-16.9); Immature Granulocytes % 2.2 % (0-4); Lymphocytes # 0.4 K/mcL (0.6-4.6); Lymphocytes % 4.3 %; Mean Corpuscular HGB Conc 30.2 g/dL (31.6-35.5); Mean Corpuscular Hemoglobin 26.5 pg (28.0-33.3); Mean Corpuscular Volume 87.8 fL (83.0-100.0); Mean Platelet Volume 10.8 fL (9.4-12.4); Monocytes # 0.5 K/mcL (0.0-1.3); Neutrophils # 7.3 K/mcL (1.6-8.9); Platelet Count 152 K/mcL (140-400); Red Blood Count 3.36 M/mcL (4.19-5.50); Red Cell Distribution Width 17.5 % (11.5-14.5); Segmented Neutrophils % 84.6 %; White Blood Count 8.6 K/mcL (4.3-11.1)
[2020-11-26 02:48] LABS: Calcium 8.6 mg/dL (8.6-10.3); Potassium 4.3 mEq/L (3.5-5.1)
[2020-11-26] MEDS: Piperacillin/Tazobactam 3.375 GM in 0.9 % Sodium Chloride Mini Bag 100 ML IVPB SCH ×2 (04:36→12:55)
[2020-11-26] MEDS: allopurinoL 100 MG TABLET PO SCH (08:47)
[2020-11-26] MEDS: carvediloL 25 MG TABLET PO SCH ×2 (08:47→16:08)
[2020-11-26] MEDS: predniSONE 5 MG TABLET PO SCH (08:47)
[2020-11-26] MEDS: Gabapentin 100 MG CAPSULE PO SCH ×2 (08:47→21:18)
[2020-11-26] MEDS: Cholecalciferol (D-3) 1,000 UNIT (25MCG) TABLET PO SCH ×2 (08:47→21:18)
[2020-11-26] MEDS: Aspirin Enteric Coated 81 MG Tablet PO SCH (08:47)
[2020-11-26] MEDS: Ascorbic Acid 500 MG TABLET PO SCH (08:47)
[2020-11-26] MEDS: gemfibroziL 600 MG TABLET PO SCH ×2 (08:47→21:19)
[2020-11-26] MEDS: amLODIPine 5 MG TABLET PO SCH (08:48)
[2020-11-26] MEDS: *HR* Amiodarone 200 MG TABLET PO SCH (08:48)
[2020-11-26] MEDS: Insulin LISPRO 300 UNITS/3 ML VIAL SUBQ SCH ×7 (08:48→21:17)
[2020-11-26] MEDS: Apixaban 5 MG TABLET PO SCH ×2 (08:48→21:18)
[2020-11-26] MEDS: (Everolimus [Zortress] 0.5 MG) PO SCH ×2 (08:49→21:19)
[2020-11-26] MEDS: polyethylene glycoL 3350 17 GM POWD.PACK PO SCH (08:50)
[2020-11-26] MEDS: cefTRIAXone 2,000 MG in Water for inj. (sterile) 20 ML IVP SCH (16:07)
[2020-11-26] MEDS: Sodium Bicarbonate 150 MEQ in Water for inj. (sterile) 1,000 ML IVC SCH (16:08)
[2020-11-26] MEDS: Doxycycline 100 MG CAPSULE PO SCH (21:19)
[2020-11-26] MEDS: Latanoprost 2.5 ML BOTTLE LEFT EYE SCH (21:20)
[2020-11-27 06:07] LABS: Calcium 8.4 mg/dL (8.6-10.3); Potassium 3.3 mEq/L (3.5-5.1)
[2020-11-27] MEDS: Sodium Bicarbonate 150 MEQ in Water for inj. (sterile) 1,000 ML IVC SCH ×2 (06:32→07:01)
[2020-11-27] MEDS: Insulin LISPRO 300 UNITS/3 ML VIAL SUBQ SCH ×7 (07:55→20:12)
[2020-11-27] MEDS: carvediloL 25 MG TABLET PO SCH ×2 (08:52→17:43)
[2020-11-27] MEDS: Aspirin Enteric Coated 81 MG Tablet PO SCH (08:52)
[2020-11-27] MEDS: Ascorbic Acid 500 MG TABLET PO SCH (08:52)
[2020-11-27] MEDS: Doxycycline 100 MG CAPSULE PO SCH ×2 (08:52→20:14)
[2020-11-27] MEDS: gemfibroziL 600 MG TABLET PO SCH ×2 (08:52→20:14)
[2020-11-27] MEDS: Apixaban 5 MG TABLET PO SCH ×2 (08:52→20:14)
[2020-11-27] MEDS: allopurinoL 100 MG TABLET PO SCH (08:53)
[2020-11-27] MEDS: predniSONE 5 MG TABLET PO SCH (08:53)
[2020-11-27] MEDS: *HR* Amiodarone 200 MG TABLET PO SCH (08:53)
[2020-11-27] MEDS: Gabapentin 100 MG CAPSULE PO SCH ×2 (08:53→20:13)
[2020-11-27] MEDS: amLODIPine 5 MG TABLET PO SCH (08:54)
[2020-11-27] MEDS: Cholecalciferol (D-3) 1,000 UNIT (25MCG) TABLET PO SCH ×2 (08:54→20:14)
[2020-11-27] MEDS: (Everolimus [Zortress] 0.5 MG) PO SCH ×2 (08:54→20:16)
[2020-11-27] MEDS ORDERED: Ringers Solution, Lactated 1,000 ML IVC SCH (13:00)
[2020-11-27] MEDS: cefTRIAXone 2,000 MG in Water for inj. (sterile) 20 ML IVP SCH (14:02)
[2020-11-27] MEDS: Latanoprost 2.5 ML BOTTLE LEFT EYE SCH (20:16)
[2020-11-28 06:01] LABS: Basophils # 0.1 K/mcL (0.0-0.2); Basophils % 0.6 %; Eosinophils # 0.7 K/mcL (0.0-0.6); Eosinophils % 8.8 %; Hematocrit 29.1 % (37.5-50.1); Hemoglobin 8.9 g/dL (12.9-16.9); Immature Granulocytes % 6.7 % (0-4); Lymphocytes # 0.9 K/mcL (0.6-4.6); Lymphocytes % 10.9 %; Mean Corpuscular HGB Conc 30.6 g/dL (31.6-35.5); Mean Corpuscular Hemoglobin 27.6 pg (28.0-33.3); Mean Corpuscular Volume 90.1 fL (83.0-100.0); Mean Platelet Volume 10.4 fL (9.4-12.4); Monocytes # 0.6 K/mcL (0.0-1.3); Monocytes % 6.8 %; Neutrophils # 5.4 K/mcL (1.6-8.9); Nucleated Red Blood Cells 0.9 /100 WBC (0); Platelet Count 187 K/mcL (140-400); Red Blood Count 3.23 M/mcL (4.19-5.50); Red Cell Distribution Width 17.3 % (11.5-14.5); Segmented Neutrophils % 66.2 %; White Blood Count 8.1 K/mcL (4.3-11.1)
[2020-11-28 06:38] LABS: Calcium 8.5 mg/dL (8.6-10.3); Potassium 3.3 mEq/L (3.5-5.1)
[2020-11-28 06:41] LABS: Anisocytosis 1+ (Not Present); Platelet Estimate Normal (Normal)
[2020-11-28] MEDS: Insulin LISPRO 300 UNITS/3 ML VIAL SUBQ SCH ×7 (07:42→21:10)
[2020-11-28] MEDS: amLODIPine 5 MG TABLET PO SCH (08:52)
[2020-11-28] MEDS: *HR* Amiodarone 200 MG TABLET PO SCH (08:53)
[2020-11-28] MEDS: carvediloL 25 MG TABLET PO SCH ×2 (08:53→17:19)
[2020-11-28] MEDS: predniSONE 5 MG TABLET PO SCH (08:53)
[2020-11-28] MEDS: Cefdinir 300 MG CAPSULE PO SCH (08:53)
[2020-11-28] MEDS: allopurinoL 100 MG TABLET PO SCH (08:53)
[2020-11-28] MEDS: Doxycycline 100 MG CAPSULE PO SCH ×2 (08:53→21:09)
[2020-11-28] MEDS: Cholecalciferol (D-3) 1,000 UNIT (25MCG) TABLET PO SCH ×2 (08:53→21:09)
[2020-11-28] MEDS: Ascorbic Acid 500 MG TABLET PO SCH (08:54)
[2020-11-28] MEDS: gemfibroziL 600 MG TABLET PO SCH ×2 (08:54→21:10)
[2020-11-28] MEDS: Aspirin Enteric Coated 81 MG Tablet PO SCH (08:54)
[2020-11-28] MEDS: Gabapentin 100 MG CAPSULE PO SCH ×2 (08:54→21:10)
[2020-11-28] MEDS: (Everolimus [Zortress] 0.5 MG) PO SCH ×2 (08:56→21:15)
[2020-11-28] MEDS: Apixaban 5 MG TABLET PO SCH ×2 (11:05→23:52)
[2020-11-28] MEDS: Latanoprost 2.5 ML BOTTLE LEFT EYE SCH (21:15)
[2020-11-29 04:17] LABS: Hematocrit 31.7 % (37.5-50.1); Hemoglobin 9.6 g/dL (12.9-16.9); Mean Corpuscular HGB Conc 30.3 g/dL (31.6-35.5); Mean Corpuscular Hemoglobin 27.6 pg (28.0-33.3); Mean Corpuscular Volume 91.1 fL (83.0-100.0); Mean Platelet Volume 9.9 fL (9.4-12.4); Nucleated Red Blood Cells 0.9 /100 WBC (0); Platelet Count 209 K/mcL (140-400); Red Blood Count 3.48 M/mcL (4.19-5.50); Red Cell Distribution Width 17.7 % (11.5-14.5); White Blood Count 9.2 K/mcL (4.3-11.1)
[2020-11-29 04:39] LABS: Calcium 8.6 mg/dL (8.6-10.3); Potassium 3.6 mEq/L (3.5-5.1)
[2020-11-29 04:42] LABS: Anisocytosis 1+ (Not Present); Eosinophils # 1.5 K/mcL (0.0-0.6); Lymphocytes # 0.6 K/mcL (0.6-4.6); Monocytes # 0.7 K/mcL (0.0-1.3); Neutrophils # 5.9 K/mcL (1.6-8.9); Platelet Estimate Normal (Normal); Polychromasia 1+ (Not Present); Reactive Lymphocytes Present (Not Present)
[2020-11-29] MEDS ORDERED: Lactobacillus 1 EACH CAP.SPRINK PO SCH (09:00)
[2020-11-29] MEDS: Insulin LISPRO 300 UNITS/3 ML VIAL SUBQ SCH ×4 (09:18→12:01)
[2020-11-29] MEDS: carvediloL 25 MG TABLET PO SCH (09:19)
[2020-11-29] MEDS: Cefdinir 300 MG CAPSULE PO SCH (09:19)
[2020-11-29] MEDS: Aspirin Enteric Coated 81 MG Tablet PO SCH (09:19)
[2020-11-29] MEDS: gemfibroziL 600 MG TABLET PO SCH (09:19)
[2020-11-29] MEDS: allopurinoL 100 MG TABLET PO SCH (09:19)
[2020-11-29] MEDS: Cholecalciferol (D-3) 1,000 UNIT (25MCG) TABLET PO SCH (09:19)
[2020-11-29] MEDS: Ascorbic Acid 500 MG TABLET PO SCH (09:19)
[2020-11-29] MEDS: Gabapentin 100 MG CAPSULE PO SCH (09:19)
[2020-11-29] MEDS: amLODIPine 5 MG TABLET PO SCH (09:20)
[2020-11-29] MEDS: *HR* Amiodarone 200 MG TABLET PO SCH (09:20)
[2020-11-29] MEDS: Doxycycline 100 MG CAPSULE PO SCH (09:20)
[2020-11-29] MEDS: (Everolimus [Zortress] 0.5 MG) PO SCH (09:20)
[2020-11-29] MEDS: Apixaban 5 MG TABLET PO SCH (09:20)
[2020-11-29] MEDS: predniSONE 5 MG TABLET PO SCH (09:20)
[2020-11-29 11:18] VITALS: BP 149/70
[2020-11-29 13:17] LABS: Adenovirus Not Detected (Not Detect); Bordetella Pertussis Not Detected (Not Detect); Chlamydophila pneumoniae Not Detected (Not Detect); Coronavirus 229E Not Detected (Not Detect); Coronavirus HKU1 Not Detected (Not Detect); Coronavirus NL63 Not Detected (Not Detect); Coronavirus OC43 Not Detected (Not Detect); Human Metapneumovirus Not Detected (Not Detect); Human Rhinovirus/Enterovirus DETECTED (Not Detect); Influenza A Subtype 2009 H1 Not Detected (Not Detect); Influenza B Not Detected (Not Detect); Mycoplasma pneumoniae Not Detected (Not Detect); Parainfluenza Virus 1 Not Detected (Not Detect); Parainfluenza Virus 2 Not Detected (Not Detect); Parainfluenza Virus 3 Not Detected (Not Detect); Parainfluenza Virus 4 Not Detected (Not Detect); Respiratory Syncytial Virus Not Detected (Not Detect); SARS-CoV-2 Not Detected (Not Detect)
== END 2020-11-29 15:32 | DRG 637 ==
LOC: EMEROOARM 17:48 → 2NENU 17:48 → 3ANU 21:31 → SUATTDRO 11-23 11:58
PROVIDERS: ADMIT Student in an Organized Health Care Education/Training Program; ATTEND Internal Medicine

== ENCOUNTER 2020-12-26 23:46 | Inpatient (IN) ==
[2020-12-27] MEDS ORDERED: Naloxone 0.4 MG/ML INJ IVP PRN (02:58)
[2020-12-27] MEDS ORDERED: Acetaminophen 325 MG TABLET PO PRN (02:58)
[2020-12-27] MEDS ORDERED: Melatonin 3 MG TABLET PO PRN (02:58)
[2020-12-27 06:11] LABS: Basophils % 0.7 %; Eosinophils # 0.6 K/mcL (0.0-0.6); Eosinophils % 9.8 %; Hematocrit 32.2 % (37.5-50.1); Hemoglobin 9.5 g/dL (12.9-16.9); Immature Granulocytes % 0.5 % (0-4); Lymphocytes # 0.5 K/mcL (0.6-4.6); Lymphocytes % 9.4 %; Mean Corpuscular HGB Conc 29.5 g/dL (31.6-35.5); Mean Corpuscular Hemoglobin 26.8 pg (28.0-33.3); Mean Corpuscular Volume 90.7 fL (83.0-100.0); Monocytes # 0.6 K/mcL (0.0-1.3); Monocytes % 10.5 %; Neutrophils # 3.9 K/mcL (1.6-8.9); Platelet Count 146 K/mcL (140-400); Red Blood Count 3.55 M/mcL (4.19-5.50); Red Cell Distribution Width 18.5 % (11.5-14.5); Segmented Neutrophils % 69.1 %; White Blood Count 5.6 K/mcL (4.3-11.1)
[2020-12-27] MEDS ORDERED: D5% in Water 1,000 ML IVC PRN (06:17)
[2020-12-27] MEDS ORDERED: *HR* Dextrose 50 % in Water (Vial) 50 ML VIAL IVP PRN (06:17)
[2020-12-27] MEDS ORDERED: Dextrose Gel 15 GM/37.5 ML TUBE PO PRN ×2 (06:17)
[2020-12-27 06:20] LABS: INR 1.5; Prothrombin Time 16.6 Seconds (9.4-12.1)
[2020-12-27 06:34] LABS: Albumin 3.3 g/dL (3.5-5.7); Albumin/Globulin Ratio 1.1 (1.1-2.2); Bilirubin,Total 0.5 mg/dL (0.3-1.0); Calcium 8.5 mg/dL (8.6-10.3); Globulin 2.9 g/dL (2.4-3.5); Magnesium 1.8 mg/dL (1.6-2.6); Phosphorous 3.5 mg/dL (2.7-4.5); Potassium 3.4 mEq/L (3.5-5.1); Total Protein 6.2 g/dL (6.4-8.9); Troponin I 0.03 ng/mL (< 0.04)
[2020-12-27] MEDS: Insulin LISPRO 300 UNITS/3 ML VIAL SUBQ SCH ×4 (08:26→20:15)
[2020-12-27] MEDS ORDERED: Insulin LISPRO 300 UNITS/3 ML VIAL SUBQ SCH (12:00)
[2020-12-27] MEDS ORDERED: Apixaban 5 MG TABLET PO SCH (14:00)
[2020-12-27] MEDS ORDERED: amLODIPine 5 MG TABLET PO SCH (15:15)
[2020-12-27] MEDS: carvediloL 25 MG TABLET PO SCH (16:03)
[2020-12-27] MEDS: *HR* Amiodarone 200 MG TABLET PO SCH (16:03)
[2020-12-27] MEDS: predniSONE 5 MG TABLET PO SCH (16:03)
[2020-12-27] MEDS: Mycophenolate Sodium (DR) 180 MG TABLET.DR PO SCH ×2 (16:04→20:44)
[2020-12-27 16:30] LABS: Bilirubin,Urine Negative (Negative); Blood,Urine Negative (Negative); Clarity,Urine Clear (Clear); Color,Urine Light-Yellow (Yellow); Glucose,Urine (UA) Normal (Normal); Ketones,Urine Negative (Negative); Leukocyte Esterase,Urine Negative (Negative); Nitrite,Urine Negative (Negative); PH,Urine 6.5 pH Units (5.0-8.0); Protein,Urine 100 mg/dL (Neg-Trace); RBC,Urine 0-3 per hpf (0-3); Specific Gravity,Urine 1.015 (1.010-1.025); Urobilinogen,Urine Normal (Normal); WBC,Urine 0-3 per hpf (0-3)
[2020-12-27 16:38] LABS: Protein/Creatinine Ratio,Urine 4.21 mg/mg (0.00-0.20); Sodium, Urine 98.4 mEq/L
[2020-12-27] MEDS: Albumin 25% 25gram/100mL 25 GM/100 ML IV.SOLN IVPB SCH (17:24)
[2020-12-27] MEDS ORDERED: Apixaban 5 MG TABLET PO ONE (18:00)
[2020-12-27] MEDS ORDERED: Furosemide 20 MG TABLET PO SCH (19:00)
[2020-12-27] MEDS: Ondansetron 4 MG/2 ML VIAL IVP PRN (20:10)
[2020-12-27] MEDS: Cefdinir 300 MG CAPSULE PO SCH (20:43)
[2020-12-27] MEDS: Furosemide 20 MG/2 ML VIAL IVP SCH (20:44)
[2020-12-27] MEDS: (Everolimus [Zortress] 0.5 MG Tablet) PO SCH (20:44)
[2020-12-27] MEDS: gemfibroziL 600 MG TABLET PO SCH (20:44)
[2020-12-27] MEDS: Lactobacillus 1 EACH CAP.SPRINK PO SCH (20:44)
[2020-12-27] MEDS: Latanoprost 2.5 ML BOTTLE LEFT EYE SCH (20:53)
[2020-12-28 03:50] LABS: Basophils % 0.6 %; Eosinophils # 0.3 K/mcL (0.0-0.6); Eosinophils % 5.4 %; Hematocrit 29.2 % (37.5-50.1); Hemoglobin 8.6 g/dL (12.9-16.9); Immature Granulocytes % 0.6 % (0-4); Lymphocytes # 0.5 K/mcL (0.6-4.6); Lymphocytes % 9.7 %; Mean Corpuscular HGB Conc 29.5 g/dL (31.6-35.5); Mean Corpuscular Hemoglobin 26.7 pg (28.0-33.3); Mean Corpuscular Volume 90.7 fL (83.0-100.0); Monocytes # 0.5 K/mcL (0.0-1.3); Monocytes % 8.8 %; Platelet Count 145 K/mcL (140-400); Red Blood Count 3.22 M/mcL (4.19-5.50); Red Cell Distribution Width 18.2 % (11.5-14.5); Segmented Neutrophils % 74.9 %; White Blood Count 5.4 K/mcL (4.3-11.1)
[2020-12-28 04:05] LABS: Calcium 8.4 mg/dL (8.6-10.3); Magnesium 1.9 mg/dL (1.6-2.6); Potassium 3.5 mEq/L (3.5-5.1)
[2020-12-28] MEDS: Albumin 25% 25gram/100mL 25 GM/100 ML IV.SOLN IVPB SCH ×2 (05:21→17:05)
[2020-12-28] MEDS: Cefdinir 300 MG CAPSULE PO SCH ×2 (07:31→20:32)
[2020-12-28] MEDS: gemfibroziL 600 MG TABLET PO SCH ×2 (07:31→20:33)
[2020-12-28] MEDS: Lactobacillus 1 EACH CAP.SPRINK PO SCH ×2 (07:31→20:33)
[2020-12-28] MEDS: Apixaban 5 MG TABLET PO SCH ×2 (07:31→20:32)
[2020-12-28] MEDS: predniSONE 5 MG TABLET PO SCH (07:32)
[2020-12-28] MEDS: Ascorbic Acid 500 MG TABLET PO SCH (07:32)
[2020-12-28] MEDS: Mycophenolate Sodium (DR) 180 MG TABLET.DR PO SCH ×2 (07:33→20:32)
[2020-12-28] MEDS: *HR* Amiodarone 200 MG TABLET PO SCH (07:33)
[2020-12-28] MEDS: carvediloL 25 MG TABLET PO SCH ×2 (07:33→16:05)
[2020-12-28] MEDS: Furosemide 20 MG/2 ML VIAL IVP SCH ×2 (07:33→18:48)
[2020-12-28] MEDS: (Everolimus [Zortress] 0.5 MG Tablet) PO SCH ×2 (07:33→20:34)
[2020-12-28] MEDS: Insulin LISPRO 300 UNITS/3 ML VIAL SUBQ SCH ×4 (07:34→20:34)
[2020-12-28] MEDS: Latanoprost 2.5 ML BOTTLE LEFT EYE SCH (20:34)
[2020-12-29 04:04] LABS: Basophils # 0.1 K/mcL (0.0-0.2); Basophils % 1.1 %; Eosinophils # 0.3 K/mcL (0.0-0.6); Hematocrit 30.2 % (37.5-50.1); Immature Granulocytes % 0.6 % (0-4); Lymphocytes # 0.6 K/mcL (0.6-4.6); Lymphocytes % 13.2 %; Mean Corpuscular HGB Conc 29.8 g/dL (31.6-35.5); Mean Corpuscular Volume 90.7 fL (83.0-100.0); Mean Platelet Volume 10.2 fL (9.4-12.4); Monocytes # 0.5 K/mcL (0.0-1.3); Monocytes % 10.2 %; Neutrophils # 3.2 K/mcL (1.6-8.9); Platelet Count 146 K/mcL (140-400); Red Blood Count 3.33 M/mcL (4.19-5.50); Red Cell Distribution Width 18.2 % (11.5-14.5); Segmented Neutrophils % 68.9 %; White Blood Count 4.7 K/mcL (4.3-11.1)
[2020-12-29 04:22] LABS: Chol/HDL Ratio 4.2 (0-4.9)
[2020-12-29 04:23] LABS: Calcium 8.7 mg/dL (8.6-10.3); Potassium 3.4 mEq/L (3.5-5.1)
[2020-12-29] MEDS: Albumin 25% 25gram/100mL 25 GM/100 ML IV.SOLN IVPB SCH (06:04)
[2020-12-29] MEDS: Insulin LISPRO 300 UNITS/3 ML VIAL SUBQ SCH ×4 (08:33→20:45)
[2020-12-29] MEDS: gemfibroziL 600 MG TABLET PO SCH ×2 (10:14→21:34)
[2020-12-29] MEDS: *HR* Amiodarone 200 MG TABLET PO SCH (10:14)
[2020-12-29] MEDS: Cefdinir 300 MG CAPSULE PO SCH ×2 (10:14→21:34)
[2020-12-29] MEDS: Lactobacillus 1 EACH CAP.SPRINK PO SCH ×2 (10:14→21:34)
[2020-12-29] MEDS: predniSONE 5 MG TABLET PO SCH (10:14)
[2020-12-29] MEDS: Mycophenolate Sodium (DR) 180 MG TABLET.DR PO SCH ×2 (10:14→21:33)
[2020-12-29] MEDS: carvediloL 25 MG TABLET PO SCH ×2 (10:14→17:54)
[2020-12-29] MEDS: Apixaban 5 MG TABLET PO SCH ×2 (10:14→21:34)
[2020-12-29] MEDS: Ascorbic Acid 500 MG TABLET PO SCH (10:14)
[2020-12-29] MEDS: Furosemide 20 MG/2 ML VIAL IVP SCH (10:15)
[2020-12-29] MEDS: (Everolimus [Zortress] 0.5 MG Tablet) PO SCH ×2 (10:15→20:46)
[2020-12-29] MEDS: Ondansetron 4 MG/2 ML VIAL IVP PRN (19:37)
[2020-12-29] MEDS: Latanoprost 2.5 ML BOTTLE LEFT EYE SCH (21:35)
[2020-12-30 08:02] LABS: Calcium 8.6 mg/dL (8.6-10.3); Magnesium 1.9 mg/dL (1.6-2.6); Potassium 3.4 mEq/L (3.5-5.1)
[2020-12-30] MEDS ORDERED: Furosemide 20 MG/2 ML VIAL IVP SCH (09:00)
[2020-12-30] MEDS: Lactobacillus 1 EACH CAP.SPRINK PO SCH ×2 (09:01→21:05)
[2020-12-30] MEDS: predniSONE 5 MG TABLET PO SCH (09:02)
[2020-12-30] MEDS: Mycophenolate Sodium (DR) 180 MG TABLET.DR PO SCH ×2 (09:05→21:06)
[2020-12-30] MEDS: Ascorbic Acid 500 MG TABLET PO SCH (09:05)
[2020-12-30] MEDS: Ondansetron 4 MG/2 ML VIAL IVP PRN ×2 (09:05→21:07)
[2020-12-30] MEDS: Apixaban 5 MG TABLET PO SCH ×2 (09:05→21:05)
[2020-12-30] MEDS: gemfibroziL 600 MG TABLET PO SCH ×2 (09:05→21:06)
[2020-12-30] MEDS: *HR* Amiodarone 200 MG TABLET PO SCH (09:05)
[2020-12-30] MEDS: carvediloL 25 MG TABLET PO SCH ×2 (09:05→16:27)
[2020-12-30] MEDS: Insulin LISPRO 300 UNITS/3 ML VIAL SUBQ SCH ×4 (09:07→21:06)
[2020-12-30 10:20] LABS: Total Volume 24 Hour,Urine 1.82 Liters (0.80-1.80)
[2020-12-30 10:38] LABS: Protein/Creatinine Ratio,Urine 5.13 mg/mg (0.00-0.20)
[2020-12-30] MEDS: (Everolimus [Zortress] 0.5 MG Tablet) PO SCH ×3 (12:46→21:06)
[2020-12-30] MEDS: Latanoprost 2.5 ML BOTTLE LEFT EYE SCH (21:07)
[2020-12-31 03:28] LABS: Calcium 8.7 mg/dL (8.6-10.3); Potassium 3.7 mEq/L (3.5-5.1)
[2020-12-31] MEDS: Insulin LISPRO 300 UNITS/3 ML VIAL SUBQ SCH ×4 (07:26→20:55)
[2020-12-31] MEDS: Ascorbic Acid 500 MG TABLET PO SCH (08:30)
[2020-12-31] MEDS: Lactobacillus 1 EACH CAP.SPRINK PO SCH ×2 (08:30→20:55)
[2020-12-31] MEDS: Apixaban 5 MG TABLET PO SCH ×2 (08:30→20:54)
[2020-12-31] MEDS: (Everolimus [Zortress] 0.5 MG Tablet) PO SCH ×2 (08:30→22:20)
[2020-12-31] MEDS: Mycophenolate Sodium (DR) 180 MG TABLET.DR PO SCH ×2 (08:30→20:55)
[2020-12-31] MEDS: gemfibroziL 600 MG TABLET PO SCH ×2 (08:30→20:54)
[2020-12-31] MEDS: carvediloL 25 MG TABLET PO SCH ×3 (08:30→20:54)
[2020-12-31] MEDS: *HR* Amiodarone 200 MG TABLET PO SCH (08:30)
[2020-12-31] MEDS: predniSONE 5 MG TABLET PO SCH (08:30)
[2020-12-31] MEDS ORDERED: Furosemide 20 MG TABLET PO SCH (09:00)
[2020-12-31] MEDS: Latanoprost 2.5 ML BOTTLE LEFT EYE SCH (22:20)
[2020-12-31 23:45] VITALS: BP 134/66
[2021-01-01 00:59] LABS: Influenza A PCR Negative (Negative); Influenza B PCR Negative (Negative); Resp. Syncytial Virus PCR Negative (Negative)
[2021-01-01 01:01] LABS: SARS-CoV-2 by PCR (In House) Negative (Negative)
== END 2021-01-01 01:55 | disposition short-term general hospital (02) | DRG 683 ==
LOC: 2ANU → SUATTDRO 12-27 02:30
PROVIDERS: ADMIT Family Medicine; ATTEND Internal Medicine

== ENCOUNTER 2021-02-07 13:35 | Inpatient (IN) ==
[2021-02-07] MEDS ORDERED: Ondansetron 4 MG/2 ML VIAL IVP ONE (14:02)
[2021-02-07] MEDS ORDERED: 0.9 % Sodium Chloride 1,000 ML IVC ONE ×2 (14:02→15:56)
[2021-02-07] MEDS ORDERED: Vancomycin 1,500 MG/265 ML IV.SOLN IVPB ONE (14:26)
[2021-02-07] MEDS ORDERED: Piperacillin/Tazobactam 3.375 GM in 0.9 % Sodium Chloride Mini Bag 100 ML IVPB ONE (14:26)
[2021-02-07] MEDS: Tdap (Boostrix) Vaccine 0.5 ML SYRINGE IM ONE ×2 (14:31→14:34)
[2021-02-07 15:06] LABS: VBG Base Excess -6 mEq/L; VBG Chloride 117 mEq/L (98-107); VBG Glucose 249 mg/dl (65-95); VBG HCO3 18 mEq/L (21-27); VBG Ionized Calcium 0.91 mmol/L (1.15-1.35); VBG Oxygen Saturation 100 %; VBG PCO2 28 mmHg (41-51); VBG PH 7.42 pH Units (7.32-7.42); VBG PO2 231 mmHg (25-50); VBG Total CO2 19 mEq/L
[2021-02-07 15:19] LABS: Albumin 3.3 g/dL (3.5-5.7); Bilirubin,Direct 0.4 mg/dL (0.0-0.2); Bilirubin,Indirect 0.3 mg/dL (0.0-1.0); Bilirubin,Total 0.7 mg/dL (0.3-1.0); Calcium 8.9 mg/dL (8.6-10.3); Globulin 3.3 g/dL (2.4-3.5); Potassium 3.6 mEq/L (3.5-5.1); Total Protein 6.6 g/dL (6.4-8.9); Troponin I 0.06 ng/mL (< 0.04)
[2021-02-07 15:35] LABS: Basophils % 0.2 %; Eosinophils % 0.4 %; Hematocrit 29.1 % (37.5-50.1); Hemoglobin 8.6 g/dL (12.9-16.9); Immature Granulocytes % 0.3 % (0-4); Lymphocytes # 0.3 K/mcL (0.6-4.6); Lymphocytes % 2.8 %; Mean Corpuscular HGB Conc 29.6 g/dL (31.6-35.5); Mean Corpuscular Hemoglobin 28.3 pg (28.0-33.3); Mean Corpuscular Volume 95.7 fL (83.0-100.0); Mean Platelet Volume 10.4 fL (9.4-12.4); Monocytes # 0.5 K/mcL (0.0-1.3); Monocytes % 5.1 %; Neutrophils # 8.6 K/mcL (1.6-8.9); Platelet Count 151 K/mcL (140-400); Red Blood Count 3.04 M/mcL (4.19-5.50); Red Cell Distribution Width 18.9 % (11.5-14.5); Segmented Neutrophils % 91.2 %; White Blood Count 9.4 K/mcL (4.3-11.1)
[2021-02-07] MEDS ORDERED: 0.9 % Sodium Chloride 1,000 ML ONE (15:58)
[2021-02-07] MEDS ORDERED: Potassium Chloride 40 MEQ, Lidocaine 1% 2 ML in 0.9 % Sodium Chloride 500 ML IVPB ONE (15:59)
[2021-02-07] MEDS ORDERED: *HR* OxyCODONE Immed Rel 5 MG TABLET PO PRN (16:23)
[2021-02-07] MEDS ORDERED: *HR* HYDROcodone/Acet 5/325 mg TABLET PO PRN (16:23)
[2021-02-07] MEDS ORDERED: Ondansetron 4 MG/2 ML VIAL IVP PRN (16:23)
[2021-02-07] MEDS ORDERED: Dextrose Gel 15 GM/37.5 ML TUBE PO PRN ×2 (16:23)
[2021-02-07] MEDS ORDERED: Naloxone 0.4 MG/ML INJ IVP PRN (16:23)
[2021-02-07] MEDS ORDERED: *HR* Dextrose 50 % in Water (Vial) 50 ML VIAL IVP PRN (16:23)
[2021-02-07] MEDS ORDERED: D5% in Water 1,000 ML IVC PRN (16:23)
[2021-02-07] MEDS ORDERED: Acetaminophen 325 MG TABLET PO PRN (16:23)
[2021-02-07 16:54] LABS: Bilirubin,Urine Negative (Negative); Blood,Urine Trace-intact (Negative); Clarity,Urine Clear (Clear); Color,Urine Yellow (Yellow); Glucose,Urine (UA) 100 mg/dL (Normal); Ketones,Urine Negative (Negative); Leukocyte Esterase,Urine Negative (Negative); Nitrite,Urine Negative (Negative); Protein,Urine >=300 mg/dL (Neg-Trace); Urobilinogen,Urine Normal (Normal)
[2021-02-07 16:59] LABS: Squamous Epithelial Cell,Urine Few per hpf (None-Few); Transitional Epi Cells,Urine Few per hpf (None-Few)
[2021-02-07 17:00] LABS: RBC,Urine 0-3 per hpf (0-3); WBC,Urine 0-3 per hpf (0-3)
[2021-02-07 17:01] LABS: Bacteria,Urine Few per hpf (None-Few)
[2021-02-07] MEDS: Insulin LISPRO 300 UNITS/3 ML VIAL SUBQ SCH (18:50)
[2021-02-07] MEDS: *HR* Heparin 5,000 UNIT/ML VIAL SQ SCH (19:11)
[2021-02-07] MEDS ORDERED: Insulin DETEMIR 100 UNIT/ML X5UNITS SUBQ SCH (21:00)
[2021-02-07] MEDS ORDERED: Sennosides 8.6 MG TABLET PO SCH (22:15)
[2021-02-07] MEDS: Mycophenolate Sodium (DR) 180 MG TABLET.DR PO SCH (22:27)
[2021-02-07] MEDS: Piperacillin/Tazobactam 3.375 GM in 0.9 % Sodium Chloride Mini Bag 100 ML IVPB SCH (22:27)
[2021-02-07] MEDS ORDERED: Insulin LISPRO 300 UNITS/3 ML VIAL SUBQ SCH (22:30)
[2021-02-08 02:22] LABS: Basophils % 0.2 %; Eosinophils # 0.1 K/mcL (0.0-0.6); Eosinophils % 0.5 %; Hematocrit 29.2 % (37.5-50.1); Hemoglobin 8.3 g/dL (12.9-16.9); Immature Granulocytes % 3.2 % (0-4); Lymphocytes # 0.1 K/mcL (0.6-4.6); Lymphocytes % 0.9 %; Mean Corpuscular HGB Conc 28.4 g/dL (31.6-35.5); Mean Corpuscular Hemoglobin 27.7 pg (28.0-33.3); Mean Corpuscular Volume 97.3 fL (83.0-100.0); Mean Platelet Volume 10.2 fL (9.4-12.4); Monocytes # 0.4 K/mcL (0.0-1.3); Monocytes % 3.9 %; Platelet Count 148 K/mcL (140-400); Red Cell Distribution Width 19.3 % (11.5-14.5); Segmented Neutrophils % 91.3 %; White Blood Count 9.8 K/mcL (4.3-11.1)
[2021-02-08 02:40] LABS: Magnesium 1.9 mg/dL (1.6-2.6); Potassium 4.7 mEq/L (3.5-5.1)
[2021-02-08 03:14] LABS: Platelet Estimate Normal (Normal)
[2021-02-08] MEDS: *HR* Heparin 5,000 UNIT/ML VIAL SQ SCH ×2 (04:38→18:53)
[2021-02-08 05:32] LABS: Troponin I 0.05 ng/mL (< 0.04)
[2021-02-08] MEDS: Piperacillin/Tazobactam 3.375 GM in 0.9 % Sodium Chloride Mini Bag 100 ML IVPB SCH ×2 (06:01→18:52)
[2021-02-08] MEDS ORDERED: predniSONE 5 MG TABLET PO SCH (09:00)
[2021-02-08] MEDS ORDERED: *HR* Amiodarone 200 MG TABLET PO SCH (09:00)
[2021-02-08] MEDS: Insulin LISPRO 300 UNITS/3 ML VIAL SUBQ SCH ×5 (10:20→23:35)
[2021-02-08] MEDS ORDERED: amLODIPine 5 MG TABLET PO SCH (11:30)
[2021-02-08] MEDS: Mycophenolate Sodium (DR) 180 MG TABLET.DR PO SCH ×2 (12:12→20:56)
[2021-02-08] MEDS ORDERED: Lidocaine/EPI 1:100k 1% 50 ML VIAL ONE (15:26)
[2021-02-08] MEDS ORDERED: Dexamethasone 4 MG/ML VIAL ONE (15:49)
[2021-02-08] MEDS ORDERED: Ondansetron 4 MG/2 ML VIAL ONE (15:49)
[2021-02-08] MEDS ORDERED: Lidocaine -MPF 2% 2 ML VIAL ONE (15:49)
[2021-02-08] MEDS ORDERED: *HR* Propofol 200 MG/20 ML VIAL IVP ONE (15:49)
[2021-02-08] MEDS ORDERED: *HR* FentaNYL (PF) 100 MCG/2 ML VIAL ONE (15:49)
[2021-02-08] MEDS ORDERED: Vancomycin 1,500 MG/265 ML IV.SOLN IVPB SCH (16:00)
[2021-02-08] MEDS ORDERED: gemfibroziL 600 MG TABLET PO SCH (16:30)
[2021-02-08] MEDS ORDERED: *HR* Succinylcholine 200 MG/10 ML VIAL IVP ONE (16:38)
[2021-02-08] MEDS ORDERED: carvediloL 25 MG TABLET PO SCH (17:00)
[2021-02-08] MEDS ORDERED: *HR* PHENYLEPHRINE 1,000 MCG/10 ML SYRINGE IVP ONE (17:32)
[2021-02-08] MEDS ORDERED: EPHEDrine 50 MG/ML VIAL ONE (17:37)
[2021-02-08] MEDS ORDERED: Naloxone 0.4 MG/ML INJ IVP PRN (19:04)
[2021-02-08] MEDS ORDERED: Dextrose Gel 15 GM/37.5 ML TUBE PO PRN ×2 (19:04)
[2021-02-08] MEDS ORDERED: Acetaminophen 325 MG TABLET PO PRN (19:04)
[2021-02-08] MEDS ORDERED: *HR* Dextrose 50 % in Water (Vial) 50 ML VIAL IVP PRN (19:04)
[2021-02-08] MEDS ORDERED: Ondansetron 4 MG/2 ML VIAL IVP PRN (19:04)
[2021-02-08] MEDS ORDERED: D5% in Water 1,000 ML IVC PRN (19:04)
[2021-02-08] MEDS: Latanoprost 2.5 ML BOTTLE LEFT EYE SCH (20:56)
[2021-02-08] MEDS: Sennosides 8.6 MG TABLET PO SCH (20:56)
[2021-02-08] MEDS: Insulin DETEMIR 100 UNIT/ML X5UNITS SUBQ SCH (20:57)
[2021-02-08] MEDS: Gabapentin 100 MG CAPSULE PO SCH (20:57)
[2021-02-08] MEDS ORDERED: Latanoprost 2.5 ML BOTTLE LEFT EYE SCH (21:00)
[2021-02-08] MEDS ORDERED: Gabapentin 100 MG CAPSULE PO SCH (21:00)
[2021-02-09] MEDS ORDERED: Insulin LISPRO 300 UNITS/3 ML VIAL SUBQ SCH
[2021-02-09] MEDS: Piperacillin/Tazobactam 3.375 GM in 0.9 % Sodium Chloride Mini Bag 100 ML IVPB SCH ×2 (00:26→07:50)
[2021-02-09] MEDS: *HR* HYDROcodone/Acet 5/325 mg TABLET PO PRN ×2 (00:26→07:50)
[2021-02-09] MEDS: *HR* Heparin 5,000 UNIT/ML VIAL SQ SCH ×2 (05:23→18:19)
[2021-02-09 05:41] LABS: Basophils % 0.1 %; Eosinophils # 0.2 K/mcL (0.0-0.6); Eosinophils % 1.4 %; Hematocrit 25.7 % (37.5-50.1); Hemoglobin 7.9 g/dL (12.9-16.9); Immature Granulocytes % 8.8 % (0-4); Lymphocytes # 0.2 K/mcL (0.6-4.6); Mean Corpuscular HGB Conc 30.7 g/dL (31.6-35.5); Mean Corpuscular Hemoglobin 28.2 pg (28.0-33.3); Mean Corpuscular Volume 91.8 fL (83.0-100.0); Mean Platelet Volume 10.1 fL (9.4-12.4); Monocytes # 0.4 K/mcL (0.0-1.3); Monocytes % 3.2 %; Neutrophils # 9.3 K/mcL (1.6-8.9); Platelet Count 137 K/mcL (140-400); Red Cell Distribution Width 19.4 % (11.5-14.5); Segmented Neutrophils % 84.5 %
[2021-02-09 06:09] LABS: Calcium 8.3 mg/dL (8.6-10.3); Potassium 4.5 mEq/L (3.5-5.1)
[2021-02-09 06:40] LABS: Platelet Estimate Normal (Normal)
[2021-02-09] MEDS: gemfibroziL 600 MG TABLET PO SCH ×2 (07:49→19:02)
[2021-02-09] MEDS: amLODIPine 5 MG TABLET PO SCH (07:49)
[2021-02-09] MEDS: *HR* Amiodarone 200 MG TABLET PO SCH (07:49)
[2021-02-09] MEDS: allopurinoL 100 MG TABLET PO SCH (07:49)
[2021-02-09] MEDS: Mycophenolate Sodium (DR) 180 MG TABLET.DR PO SCH ×2 (07:49→21:20)
[2021-02-09] MEDS: Gabapentin 100 MG CAPSULE PO SCH ×2 (07:50→21:20)
[2021-02-09] MEDS: Aspirin Enteric Coated 81 MG Tablet PO SCH (07:50)
[2021-02-09] MEDS: predniSONE 10 MG TABLET PO SCH (07:50)
[2021-02-09] MEDS: carvediloL 25 MG TABLET PO SCH ×2 (07:50→18:20)
[2021-02-09] MEDS: Insulin LISPRO 300 UNITS/3 ML VIAL SUBQ SCH ×4 (07:51→21:10)
[2021-02-09] MEDS ORDERED: allopurinoL 100 MG TABLET PO SCH (09:00)
[2021-02-09] MEDS ORDERED: predniSONE 10 MG TABLET PO SCH (09:00)
[2021-02-09] MEDS ORDERED: Aspirin Enteric Coated 81 MG Tablet PO SCH (09:00)
[2021-02-09] MEDS: *HR* OxyCODONE Immed Rel 5 MG TABLET PO PRN ×2 (09:13→18:19)
[2021-02-09] MEDS ORDERED: *HR* FentaNYL (PF) 100 MCG/2 ML VIAL IVP ONE (09:35)
[2021-02-09] MEDS: Ringers Solution, Lactated 1,000 ML IVC SCH (10:09)
[2021-02-09] MEDS: Cefepime HCl 1,000 MG in Water for inj. (sterile) 10 ML IVP SCH (18:18)
[2021-02-09] MEDS: Latanoprost 2.5 ML BOTTLE LEFT EYE SCH (21:20)
[2021-02-09] MEDS: Sennosides 8.6 MG TABLET PO SCH (21:20)
[2021-02-09] MEDS: Insulin DETEMIR 100 UNIT/ML X5UNITS SUBQ SCH (21:24)
[2021-02-10] MEDS: Ringers Solution, Lactated 1,000 ML IVC SCH (00:20)
[2021-02-10] MEDS: Cefepime HCl 1,000 MG in Water for inj. (sterile) 10 ML IVP SCH ×2 (04:56→16:52)
[2021-02-10] MEDS: *HR* Heparin 5,000 UNIT/ML VIAL SQ SCH ×2 (04:56→16:52)
[2021-02-10 05:05] LABS: Hematocrit 28.9 % (37.5-50.1); Hemoglobin 8.4 g/dL (12.9-16.9); Mean Corpuscular HGB Conc 29.1 g/dL (31.6-35.5); Mean Corpuscular Hemoglobin 28.1 pg (28.0-33.3); Mean Corpuscular Volume 96.7 fL (83.0-100.0); Mean Platelet Volume 11.1 fL (9.4-12.4); Platelet Count 165 K/mcL (140-400); Red Blood Count 2.99 M/mcL (4.19-5.50); Red Cell Distribution Width 19.5 % (11.5-14.5); White Blood Count 13.7 K/mcL (4.3-11.1)
[2021-02-10 05:51] LABS: Calcium 8.4 mg/dL (8.6-10.3); Magnesium 2.3 mg/dL (1.6-2.6); Potassium 5.4 mEq/L (3.5-5.1)
[2021-02-10] MEDS: Insulin LISPRO 300 UNITS/3 ML VIAL SUBQ SCH ×4 (08:22→20:48)
[2021-02-10] MEDS: gemfibroziL 600 MG TABLET PO SCH ×2 (08:23→15:41)
[2021-02-10] MEDS: Mycophenolate Sodium (DR) 180 MG TABLET.DR PO SCH ×2 (08:23→20:48)
[2021-02-10] MEDS: Gabapentin 100 MG CAPSULE PO SCH ×2 (08:23→20:47)
[2021-02-10] MEDS: Aspirin Enteric Coated 81 MG Tablet PO SCH (08:23)
[2021-02-10] MEDS: *HR* Amiodarone 200 MG TABLET PO SCH (08:23)
[2021-02-10] MEDS: predniSONE 10 MG TABLET PO SCH (08:24)
[2021-02-10] MEDS: amLODIPine 5 MG TABLET PO SCH (08:24)
[2021-02-10] MEDS: allopurinoL 100 MG TABLET PO SCH (08:24)
[2021-02-10] MEDS: carvediloL 25 MG TABLET PO SCH (08:24)
[2021-02-10] MEDS ORDERED: Ringers Solution, Lactated 1,000 ML IVC SCH (10:30)
[2021-02-10] MEDS ORDERED: SODIUM ZIRCONIUM CYCLOSILICATE 5 GM POWD.PACK PO ONE (10:44)
[2021-02-10] MEDS ORDERED: Hydrocortisone Sodium Succ 100 MG/2 ML VIAL IVP ONE (11:36)
[2021-02-10 12:13] LABS: Complement C3 117 mg/dL (87-200)
[2021-02-10 19:49] VITALS: BP 111/67
[2021-02-10] MEDS: Sennosides 8.6 MG TABLET PO SCH (20:48)
[2021-02-10] MEDS: Insulin DETEMIR 100 UNIT/ML X5UNITS SUBQ SCH (20:52)
[2021-02-10] MEDS: Latanoprost 2.5 ML BOTTLE LEFT EYE SCH (20:53)
== END 2021-02-10 22:09 | disposition short-term general hospital (02) | DRG 255 ==
LOC: 3ANU 13:35 → EMEROOARM 13:35 → 3ANU 17:23 → SUATTDRO 02-08 14:14
PROVIDERS: ADMIT Internal Medicine; ATTEND Internal Medicine

== ENCOUNTER 2021-10-28 12:54 | Inpatient (IN) ==
[2021-10-28 14:44] LABS: Hematocrit 34.4 % (37.5-50.1); Hemoglobin 10.3 g/dL (12.9-16.9); Mean Corpuscular HGB Conc 29.9 g/dL (31.6-35.5); Mean Corpuscular Volume 96.9 fL (83.0-100.0); Mean Platelet Volume 11.3 fL (9.4-12.4); Platelet Count 170 K/mcL (140-400); Red Blood Count 3.55 M/mcL (4.19-5.50); Red Cell Distribution Width 18.9 % (11.5-14.5); White Blood Count 10.6 K/mcL (4.3-11.1)
[2021-10-28 14:54] LABS: Albumin 2.8 g/dL (3.5-5.7); Albumin/Globulin Ratio 1.2 (1.1-2.2); Bilirubin,Total 0.8 mg/dL (0.3-1.0); Calcium 8.3 mg/dL (8.6-10.3); Globulin 2.4 g/dL (2.4-3.5); Potassium 4.2 mEq/L (3.5-5.1); Total Protein 5.2 g/dL (6.4-8.9)
[2021-10-28 15:08] LABS: Influenza A PCR Negative (Negative); Influenza B PCR Negative (Negative); Resp. Syncytial Virus PCR Negative (Negative)
[2021-10-28 15:10] LABS: SARS-CoV-2 by PCR (In House) Negative (Negative)
[2021-10-28 15:54] LABS: Triiodothyronine (T3) Free 1.76 pg/mL (2.50-3.90)
[2021-10-28 16:09] LABS: Lymphocytes # 0.1 K/mcL (0.6-4.6); Monocytes # 0.9 K/mcL (0.0-1.3); Neutrophils # 9.7 K/mcL (1.6-8.9); Platelet Estimate Normal (Normal); Toxic Granulation Present (Not Present)
[2021-10-28 16:10] LABS: Dohle Bodies Present (Not Present)
[2021-10-28 16:11] LABS: Anisocytosis 1+ (Not Present); Poikilocytosis 1+ (Not Present)
[2021-10-28 18:41] LABS: Thyroid Stimulating Hormone 14.507 mcIU/mL (0.340-5.600)
[2021-10-28] MEDS ORDERED: Furosemide 40 MG/4 ML VIAL IVP ONE (19:13)
[2021-10-28] MEDS ORDERED: Naloxone 0.4 MG/ML INJ IVP PRN (20:34)
[2021-10-28] MEDS ORDERED: Melatonin 3 MG TABLET PO PRN (20:34)
[2021-10-28] MEDS ORDERED: Acetaminophen 325 MG TABLET PO PRN (20:34)
[2021-10-28] MEDS ORDERED: Ondansetron 4 MG/2 ML VIAL IVP PRN (20:34)
[2021-10-28] MEDS ORDERED: Dextrose Gel 15 GM/37.5 ML TUBE PO PRN ×2 (20:37)
[2021-10-28] MEDS ORDERED: D5% in Water 1,000 ML IVC PRN (20:37)
[2021-10-28] MEDS ORDERED: *HR* Dextrose 50 % in Water (Syg) 50 ML SYRINGE IVP PRN (20:37)
[2021-10-28] MEDS: Insulin LISPRO 300 UNITS/3 ML VIAL SUBQ SCH (21:31)
[2021-10-28 23:54] LABS: Bilirubin,Urine Negative (Negative); Blood,Urine Moderate (Negative); Clarity,Urine Turbid (Clear); Color,Urine Yellow (Yellow); Glucose,Urine (UA) Normal (Normal); Ketones,Urine Negative (Negative); Leukocyte Esterase,Urine Large (Negative); Nitrite,Urine Negative (Negative); PH,Urine 6.5 pH Units (5.0-8.0); Protein,Urine 100 mg/dL (Neg-Trace); RBC,Urine 15-30 per hpf (0-3); Specific Gravity,Urine 1.011 (1.010-1.025); Urobilinogen,Urine Normal (Normal); WBC,Urine TNTC per hpf (0-3)
[2021-10-29 02:33] LABS: Lymphocytes % 3.6 %
[2021-10-29 02:34] LABS: Basophils % 0.2 %; Eosinophils % 0.1 %; Hematocrit 32.2 % (37.5-50.1); Hemoglobin 9.5 g/dL (12.9-16.9); Immature Granulocytes % 1.1 % (0-4); Lymphocytes # 0.5 K/mcL (0.6-4.6); Mean Corpuscular HGB Conc 29.5 g/dL (31.6-35.5); Mean Corpuscular Hemoglobin 28.9 pg (28.0-33.3); Mean Corpuscular Volume 97.9 fL (83.0-100.0); Mean Platelet Volume 11.3 fL (9.4-12.4); Monocytes # 0.9 K/mcL (0.0-1.3); Monocytes % 7.1 %; Neutrophils # 11.1 K/mcL (1.6-8.9); Platelet Count 137 K/mcL (140-400); Red Blood Count 3.29 M/mcL (4.19-5.50); Segmented Neutrophils % 87.9 %; White Blood Count 12.6 K/mcL (4.3-11.1)
[2021-10-29 02:51] LABS: Albumin 2.8 g/dL (3.5-5.7); Potassium 4.3 mEq/L (3.5-5.1)
[2021-10-29 02:57] LABS: Anisocytosis 1+ (Not Present); Platelet Estimate Normal (Normal)
[2021-10-29 03:51] LABS: Adenovirus Not Detected (Not Detect); Bordetella Pertussis Not Detected (Not Detect); Chlamydophila pneumoniae Not Detected (Not Detect); Coronavirus 229E Not Detected (Not Detect); Coronavirus HKU1 Not Detected (Not Detect); Coronavirus NL63 Not Detected (Not Detect); Coronavirus OC43 Not Detected (Not Detect); Human Metapneumovirus Not Detected (Not Detect); Human Rhinovirus/Enterovirus DETECTED (Not Detect); Influenza A Subtype 2009 H1 Not Detected (Not Detect); Influenza B Not Detected (Not Detect); Mycoplasma pneumoniae Not Detected (Not Detect); Parainfluenza Virus 1 Not Detected (Not Detect); Parainfluenza Virus 2 Not Detected (Not Detect); Parainfluenza Virus 3 Not Detected (Not Detect); Parainfluenza Virus 4 Not Detected (Not Detect); Respiratory Syncytial Virus Not Detected (Not Detect); SARS-CoV-2 Not Detected (Not Detect)
[2021-10-29] MEDS ORDERED: Vancomycin 1,500 MG/265 ML IV.SOLN IVPB SCH (04:00)
[2021-10-29] MEDS ORDERED: Perflutren Lipid Microsphere 1.3 ML in 0.9 % Sodium Chloride 8.7 ML IVP PRN (04:58)
[2021-10-29] MEDS ORDERED: Cefepime HCl 1,000 MG in Water for inj. (sterile) 10 ML IVP SCH (06:00)
[2021-10-29] MEDS ORDERED: Ondansetron ODT 4 MG TAB.RAPDIS PO PRN (06:26)
[2021-10-29 07:06] LABS: Adenovirus F 40/41 PCR Not detected (Not detect); Astrovirus PCR Not detected (Not detect); C.difficile Toxin A/B Gene PCR Not detected (Not detect); Campylobacter by PCR Not detected (Not detect); Cryptosporidium by PCR Not detected (Not detect); Cyclospora cayetanensis PCR Not detected (Not detect); E. coli O157 by PCR Not detected (Not detect); Entamoeba histolytica PCR Not detected (Not detect); Enteroaggregative E.coli(EAEC) Not detected (Not detect); Enteropathogenic E.coli(EPEC) Not detected (Not detect); Enterotoxigenic E.coli (ETEC) Not detected (Not detect); Giardia lamblia PCR Not detected (Not detect); Norovirus GI/GII PCR Not detected (Not detect); Plesiomonas shigelloides PCR Not detected (Not detect); Rotavirus A PCR Not detected (Not detect); Salmonella PCR Not detected (Not detect); Sapovirus PCR Not detected (Not detect); Shig/EnteroinvasiveE coli EIEC Not detected (Not detect); Shigalike tox-prod E coli STEC Not detected (Not detect); Vibrio PCR Not detected (Not detect); Vibrio cholerae PCR Not detected (Not detect); Yersinia enterocolitica PCR Not detected (Not detect)
[2021-10-29] MEDS: Insulin LISPRO 300 UNITS/3 ML VIAL SUBQ SCH ×4 (07:28→20:12)
[2021-10-29] MEDS: carvediloL 25 MG TABLET PO SCH ×2 (08:14→17:10)
[2021-10-29] MEDS: Cholecalciferol (D-3) 1,000 UNIT (25MCG) TABLET PO SCH ×2 (08:14→20:10)
[2021-10-29] MEDS: Ascorbic Acid 500 MG TABLET PO SCH (08:15)
[2021-10-29] MEDS: *HR* Amiodarone 200 MG TABLET PO SCH (08:15)
[2021-10-29] MEDS: allopurinoL 100 MG TABLET PO SCH (08:15)
[2021-10-29] MEDS: Furosemide 40 MG/4 ML VIAL IVP SCH (08:15)
[2021-10-29] MEDS: Isosorbide MONOnitrate (24 HR) 60 MG TAB.ER.24H PO SCH (08:15)
[2021-10-29] MEDS: Aspirin Enteric Coated 81 MG Tablet PO SCH (08:16)
[2021-10-29] MEDS: predniSONE 5 MG TABLET PO SCH (08:19)
[2021-10-29] MEDS: Mycophenolate Sodium (DR) 180 MG TABLET.DR PO SCH ×2 (08:45→20:11)
[2021-10-29] MEDS ORDERED: Sennosides/Docusate Sodium TABLET PO SCH (09:00)
[2021-10-29] MEDS ORDERED: Apixaban 5 MG TABLET PO SCH (09:00)
[2021-10-29] MEDS: gemfibroziL 600 MG TABLET PO SCH ×2 (09:47→20:12)
[2021-10-29] MEDS ORDERED: Isovue-370 500 ML BOTTLE IVP ONE (13:00)
[2021-10-29] MEDS: cefTRIAXone 2,000 MG in 0.9 % Sodium Chloride Mini Bag 100 ML IVPB SCH (17:10)
[2021-10-29] MEDS: Ondansetron 4 MG/2 ML VIAL IVP PRN (18:12)
[2021-10-29] MEDS: *HR* HYDROcodone/Acet 5/325 mg TABLET PO PRN (18:47)
[2021-10-29] MEDS: Melatonin 3 MG TABLET PO SCH (20:12)
[2021-10-29] MEDS: Latanoprost 2.5 ML BOTTLE LEFT EYE SCH (20:14)
[2021-10-30] MEDS: *HR* HYDROcodone/Acet 5/325 mg TABLET PO PRN ×3 (00:47→14:14)
[2021-10-30 03:35] LABS: Basophils % 0.1 %; Eosinophils # 0.2 K/mcL (0.0-0.6); Eosinophils % 1.9 %; Hematocrit 26.9 % (37.5-50.1); Hemoglobin 8.3 g/dL (12.9-16.9); Immature Granulocytes % 0.9 % (0-4); Lymphocytes # 0.3 K/mcL (0.6-4.6); Lymphocytes % 3.5 %; Mean Corpuscular HGB Conc 30.9 g/dL (31.6-35.5); Mean Corpuscular Hemoglobin 29.2 pg (28.0-33.3); Mean Corpuscular Volume 94.7 fL (83.0-100.0); Mean Platelet Volume 10.7 fL (9.4-12.4); Monocytes # 0.5 K/mcL (0.0-1.3); Monocytes % 5.3 %; Platelet Count 135 K/mcL (140-400); Red Blood Count 2.84 M/mcL (4.19-5.50); Red Cell Distribution Width 18.8 % (11.5-14.5); Segmented Neutrophils % 88.3 %; White Blood Count 9.1 K/mcL (4.3-11.1)
[2021-10-30 03:39] LABS: Anisocytosis 1+ (Not Present); Platelet Estimate Normal (Normal)
[2021-10-30 03:51] LABS: Albumin 2.5 g/dL (3.5-5.7); Albumin/Globulin Ratio 1.2 (1.1-2.2); Bilirubin,Total 0.7 mg/dL (0.3-1.0); Calcium 7.8 mg/dL (8.6-10.3); Globulin 2.1 g/dL (2.4-3.5); Potassium 3.8 mEq/L (3.5-5.1); Total Protein 4.6 g/dL (6.4-8.9)
[2021-10-30] MEDS ORDERED: Cefepime HCl 1,000 MG in 0.9 % Sodium Chloride Mini Bag 100 ML IVP SCH (07:00)
[2021-10-30] MEDS: Insulin LISPRO 300 UNITS/3 ML VIAL SUBQ SCH ×4 (07:41→21:19)
[2021-10-30] MEDS: gemfibroziL 600 MG TABLET PO SCH ×2 (07:47→21:18)
[2021-10-30] MEDS: allopurinoL 100 MG TABLET PO SCH (07:47)
[2021-10-30] MEDS: Isosorbide MONOnitrate (24 HR) 60 MG TAB.ER.24H PO SCH (07:47)
[2021-10-30] MEDS: Mycophenolate Sodium (DR) 180 MG TABLET.DR PO SCH ×2 (07:47→21:18)
[2021-10-30] MEDS: Aspirin Enteric Coated 81 MG Tablet PO SCH (07:48)
[2021-10-30] MEDS: predniSONE 5 MG TABLET PO SCH (07:48)
[2021-10-30] MEDS: carvediloL 25 MG TABLET PO SCH ×2 (07:48→16:25)
[2021-10-30] MEDS: Ascorbic Acid 500 MG TABLET PO SCH (07:48)
[2021-10-30] MEDS: Furosemide 40 MG/4 ML VIAL IVP SCH (07:48)
[2021-10-30] MEDS: Cholecalciferol (D-3) 1,000 UNIT (25MCG) TABLET PO SCH ×2 (07:48→21:18)
[2021-10-30] MEDS: *HR* Amiodarone 200 MG TABLET PO SCH (07:48)
[2021-10-30 13:43] LABS: Hepatitis B Surface Antigen Nonreactive (Nonreactive)
[2021-10-30 14:12] LABS: Hepatitis C Virus Antibody Nonreactive (Nonreactive)
[2021-10-30 14:13] LABS: Hepatitis A Antibody IgM Nonreactive (Nonreactive); Hepatitis B Core IgM Nonreactive (Nonreactive)
[2021-10-30] MEDS: cefTRIAXone 2,000 MG in 0.9 % Sodium Chloride Mini Bag 100 ML IVPB SCH (16:22)
[2021-10-30] MEDS: Albumin 25% 25gram/100mL 25 GM/100 ML IV.SOLN IVPB SCH ×2 (16:23→23:16)
[2021-10-30] MEDS: Melatonin 3 MG TABLET PO SCH (21:18)
[2021-10-30] MEDS: Latanoprost 2.5 ML BOTTLE LEFT EYE SCH (21:19)
[2021-10-31 02:39] LABS: Basophils % 0.3 %; Eosinophils # 0.2 K/mcL (0.0-0.6); Eosinophils % 2.6 %; Hematocrit 27.6 % (37.5-50.1); Lymphocytes # 0.4 K/mcL (0.6-4.6); Lymphocytes % 4.9 %; Mean Corpuscular Hemoglobin 27.6 pg (28.0-33.3); Mean Corpuscular Volume 95.2 fL (83.0-100.0); Mean Platelet Volume 11.8 fL (9.4-12.4); Monocytes # 0.3 K/mcL (0.0-1.3); Neutrophils # 6.4 K/mcL (1.6-8.9); Platelet Count 131 K/mcL (140-400); Red Cell Distribution Width 19.1 % (11.5-14.5); Segmented Neutrophils % 87.2 %; White Blood Count 7.3 K/mcL (4.3-11.1)
[2021-10-31 02:51] LABS: Iron 13 mcg/dL (65-175)
[2021-10-31 02:52] LABS: Creatine Kinase < 10 Units/L (30-223); Phosphorous 3.8 mg/dL (2.7-4.5); Uric Acid 6.5 mg/dL (2.3-7.6)
[2021-10-31 02:53] LABS: Albumin/Globulin Ratio 1.4 (1.1-2.2); Bilirubin,Total 0.6 mg/dL (0.3-1.0); Calcium 8.1 mg/dL (8.6-10.3); Globulin 2.1 g/dL (2.4-3.5); Potassium 3.7 mEq/L (3.5-5.1); Total Protein 5.1 g/dL (6.4-8.9)
[2021-10-31] MEDS ORDERED: Meropenem 1,000 MG in 0.9 % Sodium Chloride Mini Bag 100 ML IVPB SCH (08:00)
[2021-10-31] MEDS: Insulin LISPRO 300 UNITS/3 ML VIAL SUBQ SCH ×4 (08:08→20:46)
[2021-10-31] MEDS: Cholecalciferol (D-3) 1,000 UNIT (25MCG) TABLET PO SCH ×2 (08:09→20:45)
[2021-10-31] MEDS: gemfibroziL 600 MG TABLET PO SCH (08:09)
[2021-10-31] MEDS: Isosorbide MONOnitrate (24 HR) 60 MG TAB.ER.24H PO SCH (08:09)
[2021-10-31] MEDS: allopurinoL 100 MG TABLET PO SCH (08:09)
[2021-10-31] MEDS: Mycophenolate Sodium (DR) 180 MG TABLET.DR PO SCH ×2 (08:09→20:45)
[2021-10-31] MEDS: Aspirin Enteric Coated 81 MG Tablet PO SCH (08:09)
[2021-10-31] MEDS: carvediloL 25 MG TABLET PO SCH ×2 (08:09→16:36)
[2021-10-31] MEDS: Ascorbic Acid 500 MG TABLET PO SCH (08:10)
[2021-10-31] MEDS: *HR* Amiodarone 200 MG TABLET PO SCH (08:10)
[2021-10-31] MEDS: predniSONE 5 MG TABLET PO SCH (08:10)
[2021-10-31] MEDS: *HR* HYDROcodone/Acet 5/325 mg TABLET PO PRN (08:14)
[2021-10-31 12:24] LABS: INR 1.4; Prothrombin Time 15.8 Seconds (9.4-12.1)
[2021-10-31 18:10] LABS: RBC,Peritoneal Fluid < 2000 RBC/mcL
[2021-10-31 18:25] LABS: Total Protein,Peritoneal Fluid 2.5 g/dL
[2021-10-31] MEDS: Melatonin 3 MG TABLET PO SCH (20:45)
[2021-10-31] MEDS: Latanoprost 2.5 ML BOTTLE LEFT EYE SCH (20:46)
[2021-10-31] MEDS: Ertapenem 1,000 MG in 0.9 % Sodium Chloride Mini Bag 100 ML IVPB SCH (20:46)
[2021-10-31 22:04] LABS: Appearance of Peritoneal Fl CLEAR (Clear)
[2021-10-31 22:06] LABS: Basophils,Peritoneal Fluid 0 %; Eosinophils,Peritoneal Fluid 0 %
[2021-11-01 04:56] LABS: Basophils % 0.4 %; Eosinophils # 0.2 K/mcL (0.0-0.6); Eosinophils % 2.6 %; Hematocrit 29.6 % (37.5-50.1); Hemoglobin 8.8 g/dL (12.9-16.9); Immature Granulocytes % 0.6 % (0-4); Lymphocytes # 0.4 K/mcL (0.6-4.6); Lymphocytes % 5.2 %; Mean Corpuscular HGB Conc 29.7 g/dL (31.6-35.5); Mean Corpuscular Hemoglobin 28.6 pg (28.0-33.3); Mean Corpuscular Volume 96.1 fL (83.0-100.0); Monocytes # 0.4 K/mcL (0.0-1.3); Monocytes % 4.8 %; Neutrophils # 6.7 K/mcL (1.6-8.9); Platelet Count 151 K/mcL (140-400); Red Blood Count 3.08 M/mcL (4.19-5.50); Segmented Neutrophils % 86.4 %; White Blood Count 7.8 K/mcL (4.3-11.1)
[2021-11-01 05:21] LABS: Albumin 2.7 g/dL (3.5-5.7); Albumin/Globulin Ratio 1.2 (1.1-2.2); Bilirubin,Total 0.5 mg/dL (0.3-1.0); Globulin 2.3 g/dL (2.4-3.5); Potassium 3.7 mEq/L (3.5-5.1)
[2021-11-01] MEDS: Insulin LISPRO 300 UNITS/3 ML VIAL SUBQ SCH ×4 (07:23→20:17)
[2021-11-01] MEDS: Mycophenolate Sodium (DR) 180 MG TABLET.DR PO SCH ×2 (08:00→20:16)
[2021-11-01] MEDS: allopurinoL 100 MG TABLET PO SCH (08:00)
[2021-11-01] MEDS: *HR* Amiodarone 200 MG TABLET PO SCH (08:00)
[2021-11-01] MEDS: Aspirin Enteric Coated 81 MG Tablet PO SCH (08:01)
[2021-11-01] MEDS: predniSONE 5 MG TABLET PO SCH (08:01)
[2021-11-01] MEDS: Isosorbide MONOnitrate (24 HR) 60 MG TAB.ER.24H PO SCH (08:01)
[2021-11-01] MEDS: carvediloL 25 MG TABLET PO SCH ×2 (08:01→15:50)
[2021-11-01] MEDS: Cholecalciferol (D-3) 1,000 UNIT (25MCG) TABLET PO SCH ×2 (08:01→20:17)
[2021-11-01] MEDS: *HR* HYDROcodone/Acet 5/325 mg TABLET PO PRN (08:01)
[2021-11-01] MEDS: Ascorbic Acid 500 MG TABLET PO SCH (08:02)
[2021-11-01] MEDS: Bisacodyl 10 MG RECTAL SUPPOSITORY RC SCH (11:45)
[2021-11-01] MEDS: Lactulose Oral Soln 20 GM/30 ML UDC PO SCH ×2 (11:45→20:16)
[2021-11-01] MEDS: Ertapenem 1,000 MG in 0.9 % Sodium Chloride Mini Bag 100 ML IVPB SCH (20:15)
[2021-11-01] MEDS: Latanoprost 2.5 ML BOTTLE LEFT EYE SCH (20:17)
[2021-11-01] MEDS: Apixaban 5 MG TABLET PO SCH (20:17)
[2021-11-01] MEDS: Melatonin 3 MG TABLET PO SCH (20:17)
[2021-11-02 03:31] LABS: Basophils % 0.3 %; Eosinophils # 0.1 K/mcL (0.0-0.6); Eosinophils % 0.8 %; Hematocrit 29.4 % (37.5-50.1); Hemoglobin 8.6 g/dL (12.9-16.9); Immature Granulocytes % 1.3 % (0-4); Lymphocytes # 0.2 K/mcL (0.6-4.6); Lymphocytes % 1.6 %; Mean Corpuscular HGB Conc 29.3 g/dL (31.6-35.5); Mean Corpuscular Hemoglobin 27.7 pg (28.0-33.3); Mean Corpuscular Volume 94.5 fL (83.0-100.0); Mean Platelet Volume 10.6 fL (9.4-12.4); Monocytes # 0.3 K/mcL (0.0-1.3); Monocytes % 3.1 %; Platelet Count 159 K/mcL (140-400); Red Blood Count 3.11 M/mcL (4.19-5.50); Red Cell Distribution Width 19.1 % (11.5-14.5); Segmented Neutrophils % 92.9 %; White Blood Count 10.2 K/mcL (4.3-11.1)
[2021-11-02 03:32] LABS: Neutrophils # 9.5 K/mcL (1.6-8.9)
[2021-11-02 03:51] LABS: Calcium 7.6 mg/dL (8.6-10.3); Potassium 3.7 mEq/L (3.5-5.1)
[2021-11-02] MEDS: Ascorbic Acid 500 MG TABLET PO SCH (07:59)
[2021-11-02] MEDS: Insulin LISPRO 300 UNITS/3 ML VIAL SUBQ SCH ×4 (07:59→19:48)
[2021-11-02] MEDS: carvediloL 25 MG TABLET PO SCH ×2 (07:59→16:10)
[2021-11-02] MEDS: *HR* Amiodarone 200 MG TABLET PO SCH (07:59)
[2021-11-02] MEDS: Apixaban 5 MG TABLET PO SCH ×2 (07:59→19:58)
[2021-11-02] MEDS: predniSONE 5 MG TABLET PO SCH (07:59)
[2021-11-02] MEDS: Isosorbide MONOnitrate (24 HR) 60 MG TAB.ER.24H PO SCH (07:59)
[2021-11-02] MEDS: allopurinoL 100 MG TABLET PO SCH (07:59)
[2021-11-02] MEDS: Cholecalciferol (D-3) 1,000 UNIT (25MCG) TABLET PO SCH ×2 (07:59→19:58)
[2021-11-02] MEDS: Bisacodyl 10 MG RECTAL SUPPOSITORY RC SCH (08:00)
[2021-11-02] MEDS: Aspirin Enteric Coated 81 MG Tablet PO SCH (08:00)
[2021-11-02] MEDS: Mycophenolate Sodium (DR) 180 MG TABLET.DR PO SCH ×2 (08:00→19:58)
[2021-11-02] MEDS: Lactulose Oral Soln 20 GM/30 ML UDC PO SCH ×2 (08:00→19:57)
[2021-11-02] MEDS: Ertapenem 1,000 MG in 0.9 % Sodium Chloride Mini Bag 100 ML IVPB SCH (19:53)
[2021-11-02] MEDS: Melatonin 3 MG TABLET PO SCH (19:58)
[2021-11-02] MEDS: Latanoprost 2.5 ML BOTTLE LEFT EYE SCH (19:59)
[2021-11-03 02:45] LABS: Basophils % 0.3 %; Eosinophils # 0.3 K/mcL (0.0-0.6); Eosinophils % 4.1 %; Hematocrit 28.8 % (37.5-50.1); Hemoglobin 8.5 g/dL (12.9-16.9); Immature Granulocytes % 1.7 % (0-4); Lymphocytes # 0.3 K/mcL (0.6-4.6); Lymphocytes % 4.1 %; Mean Corpuscular HGB Conc 29.5 g/dL (31.6-35.5); Mean Corpuscular Hemoglobin 28.5 pg (28.0-33.3); Mean Corpuscular Volume 96.6 fL (83.0-100.0); Mean Platelet Volume 10.3 fL (9.4-12.4); Monocytes # 0.4 K/mcL (0.0-1.3); Neutrophils # 6.1 K/mcL (1.6-8.9); Platelet Count 173 K/mcL (140-400); Red Blood Count 2.98 M/mcL (4.19-5.50); Red Cell Distribution Width 18.8 % (11.5-14.5); Segmented Neutrophils % 84.8 %; White Blood Count 7.2 K/mcL (4.3-11.1)
[2021-11-03 03:08] LABS: Calcium 7.8 mg/dL (8.6-10.3); Magnesium 2.2 mg/dL (1.6-2.6); Phosphorous 2.7 mg/dL (2.7-4.5); Potassium 3.7 mEq/L (3.5-5.1)
[2021-11-03] MEDS: Insulin LISPRO 300 UNITS/3 ML VIAL SUBQ SCH ×4 (07:40→19:57)
[2021-11-03] MEDS: Aspirin Enteric Coated 81 MG Tablet PO SCH (08:19)
[2021-11-03] MEDS: Mycophenolate Sodium (DR) 180 MG TABLET.DR PO SCH ×2 (08:19→20:11)
[2021-11-03] MEDS: Cholecalciferol (D-3) 1,000 UNIT (25MCG) TABLET PO SCH ×2 (08:19→20:12)
[2021-11-03] MEDS: Isosorbide MONOnitrate (24 HR) 60 MG TAB.ER.24H PO SCH (08:19)
[2021-11-03] MEDS: carvediloL 25 MG TABLET PO SCH ×2 (08:19→16:47)
[2021-11-03] MEDS: Ascorbic Acid 500 MG TABLET PO SCH (08:19)
[2021-11-03] MEDS: *HR* Amiodarone 200 MG TABLET PO SCH (08:20)
[2021-11-03] MEDS: allopurinoL 100 MG TABLET PO SCH (08:20)
[2021-11-03] MEDS: Apixaban 5 MG TABLET PO SCH ×2 (08:20→20:12)
[2021-11-03] MEDS: predniSONE 5 MG TABLET PO SCH (08:20)
[2021-11-03] MEDS: Bisacodyl 10 MG RECTAL SUPPOSITORY RC SCH (08:20)
[2021-11-03] MEDS: Lactulose Oral Soln 20 GM/30 ML UDC PO SCH ×2 (08:20→20:12)
[2021-11-03 09:28] LABS: % Iron Saturation 11 % (20-55); Transferrin 84 mg/dL (200-400)
[2021-11-03] MEDS: Ondansetron 4 MG/2 ML VIAL IVP PRN (13:56)
[2021-11-03] MEDS: Albumin 25% 25gram/100mL 25 GM/100 ML IV.SOLN IVC SCH ×2 (16:42→18:23)
[2021-11-03] MEDS: Melatonin 3 MG TABLET PO SCH (20:11)
[2021-11-03] MEDS: Ertapenem 1,000 MG in 0.9 % Sodium Chloride Mini Bag 100 ML IVPB SCH (20:12)
[2021-11-03] MEDS: Latanoprost 2.5 ML BOTTLE LEFT EYE SCH (20:12)
[2021-11-04 06:38] LABS: Fluid Source for Albumin PERITONEAL FL
[2021-11-04 06:46] LABS: Basophils % 0.4 %
[2021-11-04 06:48] LABS: Eosinophils # 0.2 K/mcL (0.0-0.6); Eosinophils % 4.1 %; Hematocrit 28.8 % (37.5-50.1); Immature Granulocytes % 1.6 % (0-4); Lymphocytes # 0.3 K/mcL (0.6-4.6); Lymphocytes % 5.4 %; Mean Corpuscular HGB Conc 27.8 g/dL (31.6-35.5); Mean Corpuscular Hemoglobin 27.5 pg (28.0-33.3); Mean Platelet Volume 11.3 fL (9.4-12.4); Monocytes # 0.4 K/mcL (0.0-1.3); Monocytes % 6.6 %; Neutrophils # 4.6 K/mcL (1.6-8.9); Platelet Count 175 K/mcL (140-400); Red Blood Count 2.91 M/mcL (4.19-5.50); Red Cell Distribution Width 18.7 % (11.5-14.5); Segmented Neutrophils % 81.9 %; White Blood Count 5.6 K/mcL (4.3-11.1)
[2021-11-04 07:10] LABS: Magnesium 2.3 mg/dL (1.6-2.6); Phosphorous 2.4 mg/dL (2.7-4.5); Potassium 3.4 mEq/L (3.5-5.1)
[2021-11-04 08:23] LABS: Anisocytosis 1+ (Not Present); Platelet Estimate Normal (Normal); Poikilocytosis 1+ (Not Present)
[2021-11-04] MEDS: Insulin LISPRO 300 UNITS/3 ML VIAL SUBQ SCH ×4 (09:10→22:47)
[2021-11-04] MEDS: Lactulose Oral Soln 20 GM/30 ML UDC PO SCH ×2 (09:27→21:32)
[2021-11-04] MEDS: Apixaban 5 MG TABLET PO SCH ×2 (09:27→21:31)
[2021-11-04] MEDS: Ascorbic Acid 500 MG TABLET PO SCH (09:27)
[2021-11-04] MEDS: Cholecalciferol (D-3) 1,000 UNIT (25MCG) TABLET PO SCH ×2 (09:27→21:31)
[2021-11-04] MEDS: predniSONE 5 MG TABLET PO SCH (09:27)
[2021-11-04] MEDS: carvediloL 25 MG TABLET PO SCH ×2 (09:27→17:02)
[2021-11-04] MEDS: Isosorbide MONOnitrate (24 HR) 60 MG TAB.ER.24H PO SCH (09:28)
[2021-11-04] MEDS: *HR* Amiodarone 200 MG TABLET PO SCH (09:28)
[2021-11-04] MEDS: Bisacodyl 10 MG RECTAL SUPPOSITORY RC SCH (09:28)
[2021-11-04] MEDS: Aspirin Enteric Coated 81 MG Tablet PO SCH (09:28)
[2021-11-04] MEDS: allopurinoL 100 MG TABLET PO SCH (09:28)
[2021-11-04] MEDS: Mycophenolate Sodium (DR) 180 MG TABLET.DR PO SCH ×2 (09:30→21:31)
[2021-11-04 10:20] LABS: AFP Tumor Marker Non-Pregnant 1 ng/mL (0-9)
[2021-11-04] MEDS: Ondansetron 4 MG/2 ML VIAL IVP PRN (12:16)
[2021-11-04] MEDS ORDERED: Furosemide 40 MG TABLET PO SCH (14:15)
[2021-11-04 14:20] LABS: ANA IgG by ELISA NONE DETECTED (None Detected); F-Actin (sm muscle) Ab IgG 4 Units (0-19)
[2021-11-04] MEDS: *HR* HYDROcodone/Acet 5/325 mg TABLET PO PRN ×2 (16:11→22:54)
[2021-11-04] MEDS: Nystatin POWDER 30 GM BOTTLE TP SCH ×2 (17:02→21:32)
[2021-11-04] MEDS: Ertapenem 1,000 MG in 0.9 % Sodium Chloride Mini Bag 100 ML IVPB SCH (21:30)
[2021-11-04] MEDS: Latanoprost 2.5 ML BOTTLE LEFT EYE SCH (21:33)
[2021-11-05 02:22] LABS: Basophils % 0.5 %; Eosinophils # 0.2 K/mcL (0.0-0.6); Eosinophils % 2.7 %; Hematocrit 26.2 % (37.5-50.1); Hemoglobin 7.6 g/dL (12.9-16.9); Immature Granulocytes % 2.1 % (0-4); Lymphocytes # 0.4 K/mcL (0.6-4.6); Lymphocytes % 6.5 %; Mean Corpuscular Hemoglobin 28.5 pg (28.0-33.3); Mean Corpuscular Volume 98.1 fL (83.0-100.0); Mean Platelet Volume 10.7 fL (9.4-12.4); Monocytes # 0.3 K/mcL (0.0-1.3); Neutrophils # 4.7 K/mcL (1.6-8.9); Platelet Count 188 K/mcL (140-400); Red Blood Count 2.67 M/mcL (4.19-5.50); Red Cell Distribution Width 18.4 % (11.5-14.5); Segmented Neutrophils % 82.2 %; White Blood Count 5.7 K/mcL (4.3-11.1)
[2021-11-05 02:35] LABS: BUN/Creatinine Ratio 22 (6-26); Blood Urea Nitrogen 30 mg/dL (8-23); Calcium 7.9 mg/dL (8.6-10.3); Carbon Dioxide 24 mEq/L (23-29); Chloride 118 mEq/L (98-107); Glucose 170 mg/dL (70-105); Magnesium 2.3 mg/dL (1.6-2.6); Osmolality,Calculated 318 (280-300); Phosphorous 2.1 mg/dL (2.7-4.5); Potassium 3.7 mEq/L (3.5-5.1); Sodium 149 mEq/L (136-145); eGFR For African Americans > 60 (> 60); eGFR For Non-African Americans 50 (> 60)
[2021-11-05] MEDS: Aspirin Enteric Coated 81 MG Tablet PO SCH (08:24)
[2021-11-05] MEDS: allopurinoL 100 MG TABLET PO SCH (08:24)
[2021-11-05] MEDS: Mycophenolate Sodium (DR) 180 MG TABLET.DR PO SCH ×2 (08:24→20:48)
[2021-11-05] MEDS: Cholecalciferol (D-3) 1,000 UNIT (25MCG) TABLET PO SCH ×2 (08:24→20:48)
[2021-11-05] MEDS: Lactulose Oral Soln 20 GM/30 ML UDC PO SCH ×2 (08:24→20:48)
[2021-11-05] MEDS: Apixaban 5 MG TABLET PO SCH ×2 (08:25→20:48)
[2021-11-05] MEDS: Isosorbide MONOnitrate (24 HR) 60 MG TAB.ER.24H PO SCH (08:25)
[2021-11-05] MEDS: predniSONE 5 MG TABLET PO SCH (08:25)
[2021-11-05] MEDS: Ascorbic Acid 500 MG TABLET PO SCH (08:25)
[2021-11-05] MEDS: *HR* Amiodarone 200 MG TABLET PO SCH (08:26)
[2021-11-05] MEDS: carvediloL 25 MG TABLET PO SCH ×2 (08:26→16:12)
[2021-11-05] MEDS: Insulin LISPRO 300 UNITS/3 ML VIAL SUBQ SCH ×4 (08:27→21:12)
[2021-11-05] MEDS: Bisacodyl 10 MG RECTAL SUPPOSITORY RC SCH (08:27)
[2021-11-05] MEDS: Nystatin POWDER 30 GM BOTTLE TP SCH ×3 (08:28→20:49)
[2021-11-05] MEDS: *HR* HYDROcodone/Acet 5/325 mg TABLET PO PRN (09:40)
[2021-11-05] MEDS: Furosemide 40 MG TABLET PO SCH (09:40)
[2021-11-05 10:22] LABS: Serine Protease-3 Antibody 0 AU/mL (0-19)
[2021-11-05 17:04] LABS: Protein/Creatinine Ratio,Urine 2.44 mg/mg (0.00-0.20); Sodium, Urine 56.1 mEq/L
[2021-11-05] MEDS: Ertapenem 1,000 MG in 0.9 % Sodium Chloride Mini Bag 100 ML IVPB SCH (20:48)
[2021-11-05] MEDS: Latanoprost 2.5 ML BOTTLE LEFT EYE SCH (20:50)
[2021-11-06 01:49] LABS: Eosinophils % 2.4 %; Nucleated Red Blood Cells 0.3 /100 WBC (0)
[2021-11-06 01:50] LABS: Basophils % 0.6 %; Eosinophils # 0.2 K/mcL (0.0-0.6); Hematocrit 27.8 % (37.5-50.1); Immature Granulocytes % 4.3 % (0-4); Lymphocytes # 0.5 K/mcL (0.6-4.6); Lymphocytes % 6.3 %; Mean Corpuscular HGB Conc 28.8 g/dL (31.6-35.5); Mean Corpuscular Hemoglobin 28.1 pg (28.0-33.3); Mean Corpuscular Volume 97.5 fL (83.0-100.0); Mean Platelet Volume 10.5 fL (9.4-12.4); Monocytes # 0.3 K/mcL (0.0-1.3); Monocytes % 4.2 %; Neutrophils # 5.9 K/mcL (1.6-8.9); Platelet Count 192 K/mcL (140-400); Red Blood Count 2.85 M/mcL (4.19-5.50); Segmented Neutrophils % 82.2 %; White Blood Count 7.2 K/mcL (4.3-11.1)
[2021-11-06 02:07] LABS: Calcium 7.9 mg/dL (8.6-10.3); Magnesium 2.1 mg/dL (1.6-2.6); Potassium 4.1 mEq/L (3.5-5.1)
[2021-11-06 02:28] LABS: Anisocytosis 1+ (Not Present); Hypochromasia Present (Not Present); Microcytosis Present (Not Present); Ovalocytes 1+ (Not Present)
[2021-11-06 02:29] LABS: Platelet Estimate Normal (Normal); Tear Drop Cells 1+ (Not Present)
[2021-11-06] MEDS: Furosemide 40 MG TABLET PO SCH (09:05)
[2021-11-06] MEDS: Apixaban 5 MG TABLET PO SCH ×2 (09:05→21:26)
[2021-11-06] MEDS: Lactulose Oral Soln 20 GM/30 ML UDC PO SCH ×2 (09:05→21:23)
[2021-11-06] MEDS: Cholecalciferol (D-3) 1,000 UNIT (25MCG) TABLET PO SCH ×2 (09:05→21:26)
[2021-11-06] MEDS: carvediloL 25 MG TABLET PO SCH ×2 (09:06→17:08)
[2021-11-06] MEDS: Aspirin Enteric Coated 81 MG Tablet PO SCH (09:06)
[2021-11-06] MEDS: allopurinoL 100 MG TABLET PO SCH (09:06)
[2021-11-06] MEDS: predniSONE 5 MG TABLET PO SCH (09:06)
[2021-11-06] MEDS: *HR* Amiodarone 200 MG TABLET PO SCH (09:06)
[2021-11-06] MEDS: *HR* HYDROcodone/Acet 5/325 mg TABLET PO PRN (09:06)
[2021-11-06] MEDS: Ascorbic Acid 500 MG TABLET PO SCH (09:06)
[2021-11-06] MEDS: Mycophenolate Sodium (DR) 180 MG TABLET.DR PO SCH ×2 (09:06→21:26)
[2021-11-06] MEDS: Bisacodyl 10 MG RECTAL SUPPOSITORY RC SCH (09:07)
[2021-11-06] MEDS: Isosorbide MONOnitrate (24 HR) 60 MG TAB.ER.24H PO SCH (09:08)
[2021-11-06] MEDS: Insulin LISPRO 300 UNITS/3 ML VIAL SUBQ SCH ×4 (09:08→21:18)
[2021-11-06] MEDS: Nystatin POWDER 30 GM BOTTLE TP SCH ×3 (09:08→21:24)
[2021-11-06] MEDS: Latanoprost 2.5 ML BOTTLE LEFT EYE SCH (21:25)
[2021-11-06] MEDS: Ertapenem 1,000 MG in 0.9 % Sodium Chloride Mini Bag 100 ML IVPB SCH (21:27)
[2021-11-07 02:28] LABS: Basophils % 0.4 %; Eosinophils # 0.3 K/mcL (0.0-0.6); Eosinophils % 2.5 %; Hematocrit 28.5 % (37.5-50.1); Hemoglobin 8.3 g/dL (12.9-16.9); Immature Granulocytes % 2.5 % (0-4); Lymphocytes # 0.5 K/mcL (0.6-4.6); Mean Corpuscular HGB Conc 29.1 g/dL (31.6-35.5); Mean Corpuscular Volume 96.3 fL (83.0-100.0); Mean Platelet Volume 11.2 fL (9.4-12.4); Monocytes # 0.4 K/mcL (0.0-1.3); Monocytes % 3.9 %; Neutrophils # 8.8 K/mcL (1.6-8.9); Nucleated Red Blood Cells 0.2 /100 WBC (0); Platelet Count 233 K/mcL (140-400); Red Blood Count 2.96 M/mcL (4.19-5.50); Red Cell Distribution Width 17.6 % (11.5-14.5); Segmented Neutrophils % 85.7 %; White Blood Count 10.2 K/mcL (4.3-11.1)
[2021-11-07 02:48] LABS: BUN/Creatinine Ratio 22 (6-26); Blood Urea Nitrogen 29 mg/dL (8-23); Calcium 7.9 mg/dL (8.6-10.3); Carbon Dioxide 26 mEq/L (23-29); Chloride 113 mEq/L (98-107); Glucose 159 mg/dL (70-105); Magnesium 1.9 mg/dL (1.6-2.6); Osmolality,Calculated 313 (280-300); Phosphorous 2.2 mg/dL (2.7-4.5); Sodium 147 mEq/L (136-145); eGFR For African Americans > 60 (> 60); eGFR For Non-African Americans 53 (> 60)
[2021-11-07] MEDS: Insulin LISPRO 300 UNITS/3 ML VIAL SUBQ SCH ×4 (07:55→21:00)
[2021-11-07] MEDS: predniSONE 5 MG TABLET PO SCH (08:05)
[2021-11-07] MEDS: Furosemide 40 MG TABLET PO SCH (08:05)
[2021-11-07] MEDS: Isosorbide MONOnitrate (24 HR) 60 MG TAB.ER.24H PO SCH (08:05)
[2021-11-07] MEDS: Ascorbic Acid 500 MG TABLET PO SCH (08:05)
[2021-11-07] MEDS: Lactulose Oral Soln 20 GM/30 ML UDC PO SCH ×2 (08:05→20:59)
[2021-11-07] MEDS: Mycophenolate Sodium (DR) 180 MG TABLET.DR PO SCH ×2 (08:06→20:58)
[2021-11-07] MEDS: allopurinoL 100 MG TABLET PO SCH (08:06)
[2021-11-07] MEDS: *HR* Amiodarone 200 MG TABLET PO SCH (08:06)
[2021-11-07] MEDS: Apixaban 5 MG TABLET PO SCH ×2 (08:06→20:59)
[2021-11-07] MEDS: Cholecalciferol (D-3) 1,000 UNIT (25MCG) TABLET PO SCH ×2 (08:06→20:59)
[2021-11-07] MEDS: carvediloL 25 MG TABLET PO SCH ×2 (08:06→15:58)
[2021-11-07] MEDS: Bisacodyl 10 MG RECTAL SUPPOSITORY RC SCH (08:07)
[2021-11-07] MEDS: Nystatin POWDER 30 GM BOTTLE TP SCH ×3 (08:07→21:00)
[2021-11-07] MEDS: Aspirin Enteric Coated 81 MG Tablet PO SCH (08:07)
[2021-11-07 15:01] LABS: Glucose,Pleural Fluid 173 mg/dL (No Ref Range); LDH,Pleural Fluid 108 Units/L (No Ref Range)
[2021-11-07 15:05] LABS: Glucose,Pleural Fluid 175 mg/dL (No Ref Range); LDH,Pleural Fluid 70 Units/L (No Ref Range); Total Protein,Pleural Fluid < 2.0 g/dL
[2021-11-07 15:22] LABS: Total Protein,Pleural Fluid < 2.0 g/dL
[2021-11-07 16:10] LABS: Appearance of Pleural Fl Clear (Clear)
[2021-11-07 16:10] LABS: Appearance of Pleural Fl Clear (Clear)
[2021-11-07 16:15] LABS: RBC,Pleural Fluid 3000 RBC/mcL
[2021-11-07 16:15] LABS: RBC,Pleural Fluid < 2000 RBC/mcL
[2021-11-07 16:34] LABS: Total Protein 4.9 g/dL (6.4-8.9)
[2021-11-07 16:56] LABS: Basophils,Pleural Fluid 0 %; Eosinophils,Pleural Fluid 0 %; Monocytes,Pleural Fluid 0 %
[2021-11-07 17:00] LABS: Basophils,Pleural Fluid 0 %; Eosinophils,Pleural Fluid 0 %; Monocytes,Pleural Fluid 0 %
[2021-11-07 17:11] LABS: Lactate Dehydrogenase 152 Units/L (140-271)
[2021-11-07] MEDS: Ertapenem 1,000 MG in 0.9 % Sodium Chloride Mini Bag 100 ML IVPB SCH (20:59)
[2021-11-07] MEDS: Latanoprost 2.5 ML BOTTLE LEFT EYE SCH (21:01)
[2021-11-07] MEDS: *HR* HYDROcodone/Acet 5/325 mg TABLET PO PRN (23:18)
[2021-11-08 06:45] LABS: Basophils % 0.4 %; Eosinophils # 0.2 K/mcL (0.0-0.6); Eosinophils % 2.4 %; Hematocrit 27.1 % (37.5-50.1); Hemoglobin 8.1 g/dL (12.9-16.9); Immature Granulocytes % 2.2 % (0-4); Lymphocytes # 0.7 K/mcL (0.6-4.6); Lymphocytes % 7.1 %; Mean Corpuscular HGB Conc 29.9 g/dL (31.6-35.5); Mean Corpuscular Hemoglobin 28.4 pg (28.0-33.3); Mean Corpuscular Volume 95.1 fL (83.0-100.0); Mean Platelet Volume 10.8 fL (9.4-12.4); Monocytes # 0.4 K/mcL (0.0-1.3); Neutrophils # 8.1 K/mcL (1.6-8.9); Platelet Count 217 K/mcL (140-400); Red Blood Count 2.85 M/mcL (4.19-5.50); Red Cell Distribution Width 17.8 % (11.5-14.5); Segmented Neutrophils % 83.9 %; White Blood Count 9.6 K/mcL (4.3-11.1)
[2021-11-08 07:10] LABS: BUN/Creatinine Ratio 20 (6-26); Blood Urea Nitrogen 27 mg/dL (8-23); Calcium 7.9 mg/dL (8.6-10.3); Carbon Dioxide 29 mEq/L (23-29); Chloride 110 mEq/L (98-107); Glucose 102 mg/dL (70-105); Magnesium 1.9 mg/dL (1.6-2.6); Osmolality,Calculated 307 (280-300); Phosphorous 2.5 mg/dL (2.7-4.5); Potassium 3.9 mEq/L (3.5-5.1); Sodium 146 mEq/L (136-145); eGFR For African Americans > 60 (> 60); eGFR For Non-African Americans 53 (> 60)
[2021-11-08] MEDS: Insulin LISPRO 300 UNITS/3 ML VIAL SUBQ SCH ×4 (07:45→20:28)
[2021-11-08] MEDS: Lactulose Oral Soln 20 GM/30 ML UDC PO SCH ×2 (09:23→20:28)
[2021-11-08] MEDS: Cholecalciferol (D-3) 1,000 UNIT (25MCG) TABLET PO SCH ×2 (09:23→20:26)
[2021-11-08] MEDS: Ascorbic Acid 500 MG TABLET PO SCH (09:24)
[2021-11-08] MEDS: Mycophenolate Sodium (DR) 180 MG TABLET.DR PO SCH ×2 (09:24→20:27)
[2021-11-08] MEDS: Apixaban 5 MG TABLET PO SCH ×2 (09:24→20:27)
[2021-11-08] MEDS: Isosorbide MONOnitrate (24 HR) 60 MG TAB.ER.24H PO SCH (09:25)
[2021-11-08] MEDS: carvediloL 25 MG TABLET PO SCH ×2 (09:25→17:05)
[2021-11-08] MEDS: Bisacodyl 10 MG RECTAL SUPPOSITORY RC SCH (09:25)
[2021-11-08] MEDS: Furosemide 40 MG TABLET PO SCH (09:25)
[2021-11-08] MEDS: *HR* Amiodarone 200 MG TABLET PO SCH (09:25)
[2021-11-08] MEDS: Aspirin Enteric Coated 81 MG Tablet PO SCH (09:25)
[2021-11-08] MEDS: allopurinoL 100 MG TABLET PO SCH (09:25)
[2021-11-08] MEDS: predniSONE 5 MG TABLET PO SCH (09:25)
[2021-11-08] MEDS: Nystatin POWDER 30 GM BOTTLE TP SCH ×3 (09:26→20:28)
[2021-11-08 14:41] LABS: Albumin 2.6 g/dL (3.5-5.7); Albumin/Globulin Ratio 1.3 (1.1-2.2); Bilirubin,Direct 0.1 mg/dL (0.0-0.2); Bilirubin,Indirect 0.4 mg/dL (0.0-1.0); Bilirubin,Total 0.5 mg/dL (0.3-1.0); Total Protein 4.6 g/dL (6.4-8.9)
[2021-11-08] MEDS: Latanoprost 2.5 ML BOTTLE LEFT EYE SCH (20:28)
[2021-11-09] MEDS: *HR* HYDROcodone/Acet 5/325 mg TABLET PO PRN (01:23)
[2021-11-09] MEDS: Insulin LISPRO 300 UNITS/3 ML VIAL SUBQ SCH ×4 (07:49→19:23)
[2021-11-09] MEDS: Nystatin POWDER 30 GM BOTTLE TP SCH ×3 (07:49→19:24)
[2021-11-09] MEDS: Lactulose Oral Soln 20 GM/30 ML UDC PO SCH ×2 (07:49→19:22)
[2021-11-09] MEDS: Isosorbide MONOnitrate (24 HR) 60 MG TAB.ER.24H PO SCH (07:50)
[2021-11-09] MEDS: Ascorbic Acid 500 MG TABLET PO SCH (07:50)
[2021-11-09] MEDS: predniSONE 5 MG TABLET PO SCH (07:50)
[2021-11-09] MEDS: Mycophenolate Sodium (DR) 180 MG TABLET.DR PO SCH ×2 (07:50→19:23)
[2021-11-09] MEDS: *HR* Amiodarone 200 MG TABLET PO SCH (07:50)
[2021-11-09] MEDS: allopurinoL 100 MG TABLET PO SCH (07:50)
[2021-11-09] MEDS: Aspirin Enteric Coated 81 MG Tablet PO SCH (07:50)
[2021-11-09] MEDS: Cholecalciferol (D-3) 1,000 UNIT (25MCG) TABLET PO SCH ×2 (07:50→19:23)
[2021-11-09] MEDS: carvediloL 25 MG TABLET PO SCH ×2 (07:50→16:32)
[2021-11-09] MEDS: Apixaban 5 MG TABLET PO SCH ×2 (07:51→19:23)
[2021-11-09] MEDS: Furosemide 40 MG TABLET PO SCH (07:51)
[2021-11-09] MEDS: Bisacodyl 10 MG RECTAL SUPPOSITORY RC SCH (07:51)
[2021-11-09] MEDS: Latanoprost 2.5 ML BOTTLE LEFT EYE SCH (19:22)
[2021-11-10 02:49] LABS: BUN/Creatinine Ratio 25 (6-26); Blood Urea Nitrogen 35 mg/dL (8-23); Calcium 8.1 mg/dL (8.6-10.3); Carbon Dioxide 30 mEq/L (23-29); Chloride 107 mEq/L (98-107); Glucose 166 mg/dL (70-105); Osmolality,Calculated 304 (280-300); Potassium 4.3 mEq/L (3.5-5.1); Sodium 141 mEq/L (136-145); eGFR For African Americans > 60 (> 60); eGFR For Non-African Americans 50 (> 60)
[2021-11-10] MEDS: Lactulose Oral Soln 20 GM/30 ML UDC PO SCH (07:44)
[2021-11-10] MEDS: Ascorbic Acid 500 MG TABLET PO SCH (07:44)
[2021-11-10] MEDS: allopurinoL 100 MG TABLET PO SCH (07:44)
[2021-11-10] MEDS: Apixaban 5 MG TABLET PO SCH (07:44)
[2021-11-10] MEDS: Cholecalciferol (D-3) 1,000 UNIT (25MCG) TABLET PO SCH (07:44)
[2021-11-10] MEDS: Isosorbide MONOnitrate (24 HR) 60 MG TAB.ER.24H PO SCH (07:44)
[2021-11-10] MEDS: Aspirin Enteric Coated 81 MG Tablet PO SCH (07:44)
[2021-11-10] MEDS: Mycophenolate Sodium (DR) 180 MG TABLET.DR PO SCH (07:44)
[2021-11-10] MEDS: Insulin LISPRO 300 UNITS/3 ML VIAL SUBQ SCH ×2 (07:44→12:09)
[2021-11-10] MEDS: Furosemide 40 MG TABLET PO SCH (07:44)
[2021-11-10] MEDS: Bisacodyl 10 MG RECTAL SUPPOSITORY RC SCH (07:45)
[2021-11-10] MEDS: *HR* Amiodarone 200 MG TABLET PO SCH (07:45)
[2021-11-10] MEDS: predniSONE 5 MG TABLET PO SCH (07:45)
[2021-11-10] MEDS: carvediloL 25 MG TABLET PO SCH (07:45)
[2021-11-10] MEDS: Nystatin POWDER 30 GM BOTTLE TP SCH ×2 (07:46→15:11)
[2021-11-10 10:29] VITALS: BP 119/71; PULSE 58; TEMP 98.2; O2SAT 95
[2021-11-10 13:56] LABS: Adenovirus Not Detected (Not Detect); Bordetella Pertussis Not Detected (Not Detect); Chlamydophila pneumoniae Not Detected (Not Detect); Coronavirus 229E Not Detected (Not Detect); Coronavirus HKU1 Not Detected (Not Detect); Coronavirus NL63 Not Detected (Not Detect); Coronavirus OC43 Not Detected (Not Detect); Human Metapneumovirus Not Detected (Not Detect); Human Rhinovirus/Enterovirus DETECTED (Not Detect); Influenza A Subtype 2009 H1 Not Detected (Not Detect); Influenza B Not Detected (Not Detect); Mycoplasma pneumoniae Not Detected (Not Detect); Parainfluenza Virus 1 Not Detected (Not Detect); Parainfluenza Virus 2 Not Detected (Not Detect); Parainfluenza Virus 3 Not Detected (Not Detect); Parainfluenza Virus 4 Not Detected (Not Detect); Respiratory Syncytial Virus Not Detected (Not Detect); SARS-CoV-2 Not Detected (Not Detect)
[2021-11-10 21:51] LABS: Fluid Source for Albumin PLEURAL
[2021-11-11 10:12] LABS: Fluid Source for Bilirubin PLEURAL FLUID
== END 2021-11-10 17:08 | DRG 291 ==
LOC: 2ANU 12:54 → EMEROOARM 12:54 → SUATTDRO 20:01 → 2ANU 20:40
PROVIDERS: ADMIT Internal Medicine; ATTEND Hospitalist

== ENCOUNTER 2021-11-22 14:02 | Inpatient (IN) ==
[2021-11-22 15:03] LABS: Basophils % 0.3 %; Nucleated Red Blood Cells 0.5 /100 WBC (0)
[2021-11-22 15:05] LABS: Eosinophils # 0.1 K/mcL (0.0-0.6); Eosinophils % 1.5 %; Hematocrit 22.3 % (37.5-50.1); Hemoglobin 6.5 g/dL (12.9-16.9); Immature Granulocytes % 1.5 % (0-4); Lymphocytes # 0.3 K/mcL (0.6-4.6); Lymphocytes % 4.8 %; Mean Corpuscular HGB Conc 29.1 g/dL (31.6-35.5); Mean Corpuscular Hemoglobin 29.8 pg (28.0-33.3); Mean Corpuscular Volume 102.3 fL (83.0-100.0); Mean Platelet Volume 10.5 fL (9.4-12.4); Monocytes # 0.4 K/mcL (0.0-1.3); Monocytes % 6.3 %; Neutrophils # 5.7 K/mcL (1.6-8.9); Platelet Count 249 K/mcL (140-400); Red Blood Count 2.18 M/mcL (4.19-5.50); Red Cell Distribution Width 21.5 % (11.5-14.5); Segmented Neutrophils % 85.6 %; White Blood Count 6.7 K/mcL (4.3-11.1)
[2021-11-22 15:17] LABS: INR 1.5
[2021-11-22 15:19] LABS: Activated Partial Thrombo Time 43.1 Seconds (26.0-36.0)
[2021-11-22 15:28] LABS: Anisocytosis 1+ (Not Present); Hypochromasia Present (Not Present); Platelet Estimate Normal (Normal); Poikilocytosis 1+ (Not Present)
[2021-11-22 16:12] LABS: Albumin 2.9 g/dL (3.5-5.7); Albumin/Globulin Ratio 1.3 (1.1-2.2); Bilirubin,Total 0.8 mg/dL (0.3-1.0); Calcium 7.7 mg/dL (8.6-10.3); Globulin 2.2 g/dL (2.4-3.5); Magnesium 3.1 mg/dL (1.6-2.6); Potassium 5.1 mEq/L (3.5-5.1); Total Protein 5.1 g/dL (6.4-8.9); Troponin I 0.03 ng/mL (< 0.04)
[2021-11-22] MEDS ORDERED: Calcium Gluconate 1,000 MG/10 ML VIAL IVPB ONE (16:24)
[2021-11-22] MEDS ORDERED: 0.9 % Sodium Chloride 1,000 ML IV ONE (16:24)
[2021-11-22] MEDS ORDERED: Ondansetron 4 MG/2 ML VIAL IVP ONE (16:46)
[2021-11-22] MEDS ORDERED: Naloxone 0.4 MG/ML INJ IVP PRN (17:28)
[2021-11-22] MEDS ORDERED: 0.9 % Sodium Chloride 1,000 ML IVC SCH (17:45)
[2021-11-22 17:53] LABS: Bilirubin,Urine Negative (Negative); Blood,Urine Moderate (Negative); Clarity,Urine Turbid (Clear); Color,Urine Yellow (Yellow); Glucose,Urine (UA) Normal (Normal); Ketones,Urine Negative (Negative); Leukocyte Esterase,Urine Large (Negative); Nitrite,Urine Negative (Negative); PH,Urine 6.5 pH Units (5.0-8.0); Protein,Urine 70 mg/dL (Neg-Trace); RBC,Urine 50-100 per hpf (0-3); Specific Gravity,Urine 1.016 (1.010-1.025); WBC,Urine TNTC per hpf (0-3)
[2021-11-22] MEDS ORDERED: 0.9 % Sodium Chloride 250 ML ONE (18:01)
[2021-11-22] MEDS ORDERED: *HR* Dextrose 50 % in Water (Syg) 50 ML SYRINGE IVP PRN (18:16)
[2021-11-22] MEDS ORDERED: D5% in Water 1,000 ML IVC PRN (18:16)
[2021-11-22] MEDS ORDERED: Dextrose Gel 15 GM/37.5 ML TUBE PO PRN ×2 (18:16)
[2021-11-22] MEDS: Calcium Gluconate 1gm/50mL BAG IVPB SCH (18:20)
[2021-11-22 19:37] LABS: Adenovirus Not Detected (Not Detect); Bordetella Pertussis Not Detected (Not Detect); Chlamydophila pneumoniae Not Detected (Not Detect); Coronavirus 229E Not Detected (Not Detect); Coronavirus HKU1 Not Detected (Not Detect); Coronavirus NL63 Not Detected (Not Detect); Coronavirus OC43 Not Detected (Not Detect); Human Metapneumovirus Not Detected (Not Detect); Human Rhinovirus/Enterovirus Not Detected (Not Detect); Influenza A Subtype 2009 H1 Not Detected (Not Detect); Influenza B Not Detected (Not Detect); Mycoplasma pneumoniae Not Detected (Not Detect); Parainfluenza Virus 1 Not Detected (Not Detect); Parainfluenza Virus 2 Not Detected (Not Detect); Parainfluenza Virus 3 Not Detected (Not Detect); Parainfluenza Virus 4 Not Detected (Not Detect); Respiratory Syncytial Virus Not Detected (Not Detect); SARS-CoV-2 Not Detected (Not Detect)
[2021-11-22 20:27] LABS: Folate 10.3 ng/mL (3.0-16.0)
[2021-11-22] MEDS: Pantoprazole 40 MG VIAL IVP SCH (21:10)
[2021-11-22] MEDS: Insulin LISPRO 300 UNITS/3 ML VIAL SUBQ SCH (21:14)
[2021-11-22 22:26] LABS: Hematocrit 29.3 % (37.5-50.1)
[2021-11-22 22:28] LABS: Hemoglobin 8.4 g/dL (12.9-16.9)
[2021-11-23 02:54] LABS: Basophils % 0.5 %; Nucleated Red Blood Cells 0.5 /100 WBC (0)
[2021-11-23 02:55] LABS: White Blood Count 5.6 K/mcL (4.3-11.1)
[2021-11-23 02:56] LABS: Eosinophils # 0.1 K/mcL (0.0-0.6); Hematocrit 26.9 % (37.5-50.1); Hemoglobin 7.6 g/dL (12.9-16.9); Immature Granulocytes % 1.4 % (0-4); Lymphocytes # 0.4 K/mcL (0.6-4.6); Lymphocytes % 7.9 %; Mean Corpuscular HGB Conc 28.3 g/dL (31.6-35.5); Mean Corpuscular Hemoglobin 29.2 pg (28.0-33.3); Mean Corpuscular Volume 103.5 fL (83.0-100.0); Monocytes # 0.4 K/mcL (0.0-1.3); Monocytes % 7.2 %; Neutrophils # 4.5 K/mcL (1.6-8.9); Platelet Count 194 K/mcL (140-400); Red Cell Distribution Width 20.8 % (11.5-14.5)
[2021-11-23 03:43] LABS: Albumin 2.9 g/dL (3.5-5.7); Albumin/Globulin Ratio 1.3 (1.1-2.2); Bilirubin,Total 0.8 mg/dL (0.3-1.0); Calcium 7.9 mg/dL (8.6-10.3); Globulin 2.2 g/dL (2.4-3.5); Potassium 4.8 mEq/L (3.5-5.1); Total Protein 5.1 g/dL (6.4-8.9)
[2021-11-23] MEDS: Ondansetron ODT 4 MG TAB.RAPDIS SL PRN ×2 (04:23→20:21)
[2021-11-23] MEDS: Pantoprazole 40 MG VIAL IVP SCH ×2 (05:12→16:35)
[2021-11-23] MEDS: Insulin LISPRO 300 UNITS/3 ML VIAL SUBQ SCH ×4 (09:38→20:56)
[2021-11-23 12:00] LABS: Hematocrit 27.5 % (37.5-50.1); Hemoglobin 7.9 g/dL (12.9-16.9)
[2021-11-23 12:23] LABS: Uric Acid 9.3 mg/dL (2.3-7.6)
[2021-11-23] MEDS ORDERED: *HR* Propofol 200 MG/20 ML VIAL IVP ONE (13:25)
[2021-11-23] MEDS ORDERED: Lidocaine -MPF 2% 5 ML VIAL ONE (13:25)
[2021-11-23] MEDS: 0.9 % Sodium Chloride 1,000 ML IVC SCH (15:20)
[2021-11-23] MEDS: Mycophenolate Sodium (DR) 180 MG TABLET.DR PO SCH ×2 (15:23→20:15)
[2021-11-23] MEDS: *HR* Amiodarone 200 MG TABLET PO SCH (15:32)
[2021-11-23 16:29] LABS: Protein/Creatinine Ratio,Urine 2.47 mg/mg (0.00-0.20); Sodium, Urine 52.3 mEq/L
[2021-11-23] MEDS: carvediloL 25 MG TABLET PO SCH (16:38)
[2021-11-23] MEDS: cefTRIAXone 1,000 MG in 0.9 % Sodium Chloride Mini Bag 100 ML IVPB SCH (17:53)
[2021-11-23] MEDS: Latanoprost 2.5 ML BOTTLE LEFT EYE SCH (20:15)
[2021-11-24] MEDS: Calcium Gluconate 1gm/50mL BAG IVPB SCH (04:49)
[2021-11-24] MEDS: 0.9 % Sodium Chloride 1,000 ML IVC SCH (04:54)
[2021-11-24] MEDS: Pantoprazole 40 MG VIAL IVP SCH ×2 (04:55→16:36)
[2021-11-24] MEDS: Insulin LISPRO 300 UNITS/3 ML VIAL SUBQ SCH ×4 (07:46→21:02)
[2021-11-24] MEDS: carvediloL 25 MG TABLET PO SCH ×2 (07:48→16:36)
[2021-11-24 07:56] LABS: Basophils % 0.6 %; Eosinophils % 2.5 %; Red Cell Distribution Width 21.4 % (11.5-14.5)
[2021-11-24 07:58] LABS: Eosinophils # 0.2 K/mcL (0.0-0.6); Hematocrit 29.1 % (37.5-50.1); Hemoglobin 7.7 g/dL (12.9-16.9); Immature Granulocytes % 0.9 % (0-4); Lymphocytes # 0.5 K/mcL (0.6-4.6); Lymphocytes % 7.6 %; Mean Corpuscular HGB Conc 26.5 g/dL (31.6-35.5); Mean Corpuscular Hemoglobin 28.9 pg (28.0-33.3); Mean Corpuscular Volume 109.4 fL (83.0-100.0); Monocytes # 0.5 K/mcL (0.0-1.3); Monocytes % 7.3 %; Neutrophils # 5.1 K/mcL (1.6-8.9); Platelet Count 195 K/mcL (140-400); Red Blood Count 2.66 M/mcL (4.19-5.50); Segmented Neutrophils % 81.1 %; White Blood Count 6.3 K/mcL (4.3-11.1)
[2021-11-24 09:09] LABS: Anisocytosis 2+ (Not Present)
[2021-11-24 09:10] LABS: Macrocytosis Present (Not Present); Platelet Estimate Normal (Normal); Poikilocytosis 1+ (Not Present)
[2021-11-24] MEDS: Mycophenolate Sodium (DR) 180 MG TABLET.DR PO SCH ×2 (09:25→19:34)
[2021-11-24] MEDS: predniSONE 5 MG TABLET PO SCH (09:26)
[2021-11-24] MEDS: cefTRIAXone 1,000 MG in 0.9 % Sodium Chloride Mini Bag 100 ML IVPB SCH (09:26)
[2021-11-24] MEDS: Sennosides/Docusate Sodium TABLET PO SCH (09:26)
[2021-11-24] MEDS: *HR* Amiodarone 200 MG TABLET PO SCH (09:26)
[2021-11-24 10:04] LABS: Calcium 7.7 mg/dL (8.6-10.3); Potassium 4.4 mEq/L (3.5-5.1)
[2021-11-24] MEDS: Fluconazole 100 MG TABLET PO SCH (11:19)
[2021-11-24] MEDS: Ringers Solution, Lactated 1,000 ML IVC SCH (16:45)
[2021-11-24] MEDS: Latanoprost 2.5 ML BOTTLE LEFT EYE SCH (19:35)
[2021-11-25 01:32] LABS: Platelet Count 184 K/mcL (140-400); Red Cell Distribution Width 21.1 % (11.5-14.5)
[2021-11-25 01:34] LABS: Basophils % 0.3 %; Eosinophils # 0.1 K/mcL (0.0-0.6); Hematocrit 25.9 % (37.5-50.1); Hemoglobin 7.6 g/dL (12.9-16.9); Lymphocytes # 0.5 K/mcL (0.6-4.6); Lymphocytes % 7.2 %; Mean Corpuscular HGB Conc 29.3 g/dL (31.6-35.5); Mean Corpuscular Hemoglobin 29.8 pg (28.0-33.3); Mean Corpuscular Volume 101.6 fL (83.0-100.0); Monocytes # 0.5 K/mcL (0.0-1.3); Monocytes % 7.5 %; Neutrophils # 5.7 K/mcL (1.6-8.9); Red Blood Count 2.55 M/mcL (4.19-5.50); White Blood Count 6.9 K/mcL (4.3-11.1)
[2021-11-25 01:51] LABS: Calcium 7.4 mg/dL (8.6-10.3); Potassium 4.7 mEq/L (3.5-5.1)
[2021-11-25 03:09] LABS: Anisocytosis 3+ (Not Present); Hypochromasia Present (Not Present); Platelet Estimate Normal (Normal)
[2021-11-25] MEDS: Ringers Solution, Lactated 1,000 ML IVC SCH (05:10)
[2021-11-25] MEDS: Pantoprazole 40 MG VIAL IVP SCH ×2 (05:10→17:13)
[2021-11-25] MEDS: Insulin LISPRO 300 UNITS/3 ML VIAL SUBQ SCH ×4 (06:49→21:20)
[2021-11-25] MEDS: carvediloL 25 MG TABLET PO SCH ×2 (07:24→15:29)
[2021-11-25] MEDS: predniSONE 5 MG TABLET PO SCH (07:24)
[2021-11-25] MEDS: Sennosides/Docusate Sodium TABLET PO SCH (07:24)
[2021-11-25] MEDS: Mycophenolate Sodium (DR) 180 MG TABLET.DR PO SCH ×2 (07:25→21:20)
[2021-11-25] MEDS: Fluconazole 100 MG TABLET PO SCH (07:25)
[2021-11-25] MEDS: *HR* Amiodarone 200 MG TABLET PO SCH (07:25)
[2021-11-25] MEDS: Iron Sucrose Complex 200 MG in 0.9 % Sodium Chloride 100 ML IVPB SCH (09:11)
[2021-11-25] MEDS: 0.9 % Sodium Chloride 1,000 ML IVC SCH (15:31)
[2021-11-25] MEDS: Latanoprost 2.5 ML BOTTLE LEFT EYE SCH (21:21)
[2021-11-26] MEDS: Ondansetron ODT 4 MG TAB.RAPDIS SL PRN (03:53)
[2021-11-26 05:16] LABS: Calcium 7.6 mg/dL (8.6-10.3); Potassium 4.4 mEq/L (3.5-5.1)
[2021-11-26] MEDS: Pantoprazole 40 MG VIAL IVP SCH ×2 (05:31→16:56)
[2021-11-26] MEDS: 0.9 % Sodium Chloride 1,000 ML IVC SCH (05:36)
[2021-11-26 06:08] LABS: Basophils % 0.6 %; Eosinophils # 0.3 K/mcL (0.0-0.6); Eosinophils % 4.3 %; Hematocrit 26.5 % (37.5-50.1); Hemoglobin 7.7 g/dL (12.9-16.9); Immature Granulocytes % 2.1 % (0-4); Lymphocytes # 0.7 K/mcL (0.6-4.6); Lymphocytes % 9.9 %; Mean Corpuscular HGB Conc 29.1 g/dL (31.6-35.5); Mean Corpuscular Hemoglobin 29.2 pg (28.0-33.3); Mean Corpuscular Volume 100.4 fL (83.0-100.0); Mean Platelet Volume 10.1 fL (9.4-12.4); Monocytes # 0.4 K/mcL (0.0-1.3); Monocytes % 5.2 %; Neutrophils # 5.3 K/mcL (1.6-8.9); Platelet Count 147 K/mcL (140-400); Red Blood Count 2.64 M/mcL (4.19-5.50); Red Cell Distribution Width 20.7 % (11.5-14.5); Segmented Neutrophils % 77.9 %; White Blood Count 6.8 K/mcL (4.3-11.1)
[2021-11-26] MEDS: Insulin LISPRO 300 UNITS/3 ML VIAL SUBQ SCH ×4 (08:01→20:08)
[2021-11-26] MEDS: carvediloL 25 MG TABLET PO SCH ×2 (09:31→16:56)
[2021-11-26] MEDS: Fluconazole 100 MG TABLET PO SCH (09:31)
[2021-11-26] MEDS: Mycophenolate Sodium (DR) 180 MG TABLET.DR PO SCH ×2 (09:31→20:06)
[2021-11-26] MEDS: *HR* Amiodarone 200 MG TABLET PO SCH (09:31)
[2021-11-26] MEDS: predniSONE 5 MG TABLET PO SCH (09:31)
[2021-11-26] MEDS: Sennosides/Docusate Sodium TABLET PO SCH (09:31)
[2021-11-26] MEDS: Iron Sucrose Complex 200 MG in 0.9 % Sodium Chloride 100 ML IVPB SCH (09:32)
[2021-11-26] MEDS: Latanoprost 2.5 ML BOTTLE LEFT EYE SCH (20:07)
[2021-11-27] MEDS: Pantoprazole 40 MG VIAL IVP SCH ×2 (05:12→16:54)
[2021-11-27 06:05] LABS: Basophils % 0.3 %; Eosinophils # 0.3 K/mcL (0.0-0.6); Eosinophils % 2.2 %; Hemoglobin 7.6 g/dL (12.9-16.9); Immature Granulocytes % 1.3 % (0-4); Lymphocytes # 0.6 K/mcL (0.6-4.6); Mean Corpuscular HGB Conc 28.1 g/dL (31.6-35.5); Mean Corpuscular Hemoglobin 28.5 pg (28.0-33.3); Mean Corpuscular Volume 101.1 fL (83.0-100.0); Mean Platelet Volume 9.9 fL (9.4-12.4); Monocytes # 0.5 K/mcL (0.0-1.3); Monocytes % 4.1 %; Neutrophils # 10.4 K/mcL (1.6-8.9); Platelet Count 144 K/mcL (140-400); Red Blood Count 2.67 M/mcL (4.19-5.50); Red Cell Distribution Width 20.4 % (11.5-14.5); Segmented Neutrophils % 87.1 %
[2021-11-27 06:06] LABS: White Blood Count 11.9 K/mcL (4.3-11.1)
[2021-11-27 06:23] LABS: Calcium 7.8 mg/dL (8.6-10.3); Potassium 4.5 mEq/L (3.5-5.1)
[2021-11-27] MEDS: Insulin LISPRO 300 UNITS/3 ML VIAL SUBQ SCH ×4 (07:55→21:52)
[2021-11-27] MEDS: Sennosides/Docusate Sodium TABLET PO SCH (09:20)
[2021-11-27] MEDS: *HR* Amiodarone 200 MG TABLET PO SCH (09:30)
[2021-11-27] MEDS: Mycophenolate Sodium (DR) 180 MG TABLET.DR PO SCH ×2 (09:30→21:57)
[2021-11-27] MEDS: Fluconazole 100 MG TABLET PO SCH (09:31)
[2021-11-27] MEDS: carvediloL 25 MG TABLET PO SCH ×2 (09:31→16:50)
[2021-11-27] MEDS: predniSONE 5 MG TABLET PO SCH (09:31)
[2021-11-27] MEDS: Latanoprost 2.5 ML BOTTLE LEFT EYE SCH (21:57)
[2021-11-28 02:56] LABS: Basophils % 0.2 %; Eosinophils # 0.3 K/mcL (0.0-0.6); Eosinophils % 1.9 %; Hematocrit 25.6 % (37.5-50.1); Hemoglobin 7.5 g/dL (12.9-16.9); Immature Granulocytes % 0.9 % (0-4); Lymphocytes # 0.7 K/mcL (0.6-4.6); Lymphocytes % 5.2 %; Mean Corpuscular HGB Conc 29.3 g/dL (31.6-35.5); Mean Corpuscular Hemoglobin 29.6 pg (28.0-33.3); Mean Corpuscular Volume 101.2 fL (83.0-100.0); Mean Platelet Volume 10.4 fL (9.4-12.4); Monocytes # 0.4 K/mcL (0.0-1.3); Monocytes % 3.3 %; Neutrophils # 11.5 K/mcL (1.6-8.9); Nucleated Red Blood Cells 0.2 /100 WBC (0); Platelet Count 153 K/mcL (140-400); Red Blood Count 2.53 M/mcL (4.19-5.50); Red Cell Distribution Width 20.2 % (11.5-14.5); Segmented Neutrophils % 88.5 %
[2021-11-28 03:45] LABS: Calcium 7.8 mg/dL (8.6-10.3); Potassium 4.5 mEq/L (3.5-5.1)
[2021-11-28] MEDS: Pantoprazole 40 MG VIAL IVP SCH ×2 (06:16→16:43)
[2021-11-28] MEDS: Insulin LISPRO 300 UNITS/3 ML VIAL SUBQ SCH ×4 (08:14→21:49)
[2021-11-28] MEDS: Fluconazole 100 MG TABLET PO SCH (08:15)
[2021-11-28] MEDS: predniSONE 5 MG TABLET PO SCH (08:15)
[2021-11-28] MEDS: Mycophenolate Sodium (DR) 180 MG TABLET.DR PO SCH ×2 (08:15→21:46)
[2021-11-28] MEDS: *HR* Amiodarone 200 MG TABLET PO SCH (08:15)
[2021-11-28] MEDS: carvediloL 25 MG TABLET PO SCH ×2 (08:15→16:43)
[2021-11-28] MEDS ORDERED: Preparation H Ointment 57 GM TUBE TP PRN (12:21)
[2021-11-28] MEDS ORDERED: *HR* OxyCODONE Immed Rel 5 MG TABLET PO PRN (15:14)
[2021-11-28] MEDS: *HR* OxyCODONE Immed Rel 5 MG TABLET PO PRN ×2 (15:22→21:47)
[2021-11-28] MEDS: Latanoprost 2.5 ML BOTTLE LEFT EYE SCH (21:50)
[2021-11-29 00:53] LABS: Hemoglobin 7.4 g/dL (12.9-16.9); Mean Platelet Volume 9.9 fL (9.4-12.4); Platelet Count 130 K/mcL (140-400); Red Cell Distribution Width 19.9 % (11.5-14.5)
[2021-11-29 00:55] LABS: Basophils % 0.3 %; Eosinophils # 0.2 K/mcL (0.0-0.6); Hematocrit 25.8 % (37.5-50.1); Immature Granulocytes % 1.1 % (0-4); Lymphocytes # 0.6 K/mcL (0.6-4.6); Lymphocytes % 5.7 %; Mean Corpuscular HGB Conc 28.7 g/dL (31.6-35.5); Mean Corpuscular Hemoglobin 29.5 pg (28.0-33.3); Mean Corpuscular Volume 102.8 fL (83.0-100.0); Monocytes # 0.3 K/mcL (0.0-1.3); Monocytes % 3.3 %; Neutrophils # 9.1 K/mcL (1.6-8.9); Red Blood Count 2.51 M/mcL (4.19-5.50); Segmented Neutrophils % 87.6 %; White Blood Count 10.4 K/mcL (4.3-11.1)
[2021-11-29 01:11] LABS: Calcium 8.1 mg/dL (8.6-10.3); Potassium 4.7 mEq/L (3.5-5.1)
[2021-11-29] MEDS: Pantoprazole 40 MG VIAL IVP SCH ×2 (06:04→16:39)
[2021-11-29] MEDS: Insulin LISPRO 300 UNITS/3 ML VIAL SUBQ SCH ×4 (06:58→20:31)
[2021-11-29] MEDS: Mycophenolate Sodium (DR) 180 MG TABLET.DR PO SCH ×2 (07:58→20:32)
[2021-11-29] MEDS: carvediloL 25 MG TABLET PO SCH ×2 (07:58→16:37)
[2021-11-29] MEDS: Fluconazole 100 MG TABLET PO SCH (07:59)
[2021-11-29] MEDS: predniSONE 5 MG TABLET PO SCH (07:59)
[2021-11-29] MEDS: *HR* Amiodarone 200 MG TABLET PO SCH (07:59)
[2021-11-29 11:24] LABS: Hematocrit 28.6 % (37.5-50.1)
[2021-11-29 11:35] LABS: INR 1.3; Prothrombin Time 14.8 Seconds (9.4-12.1)
[2021-11-29 11:50] LABS: Albumin 2.8 g/dL (3.5-5.7); Albumin/Globulin Ratio 1.3 (1.1-2.2); Bilirubin,Direct 0.1 mg/dL (0.0-0.2); Bilirubin,Indirect 0.3 mg/dL (0.0-1.0); Bilirubin,Total 0.4 mg/dL (0.3-1.0); Globulin 2.1 g/dL (2.4-3.5); Total Protein 4.9 g/dL (6.4-8.9)
[2021-11-29] MEDS: *HR* OxyCODONE Immed Rel 5 MG TABLET PO PRN (14:17)
[2021-11-29 20:14] LABS: Hematocrit 28.6 % (37.5-50.1); Hemoglobin 8.1 g/dL (12.9-16.9)
[2021-11-29] MEDS: Latanoprost 2.5 ML BOTTLE LEFT EYE SCH (20:32)
[2021-11-30 01:19] LABS: Basophils % 0.5 %; Hematocrit 23.6 % (37.5-50.1); Hemoglobin 6.9 g/dL (12.9-16.9); Immature Granulocytes % 0.8 % (0-4); Lymphocytes % 5.3 %; Mean Corpuscular HGB Conc 29.2 g/dL (31.6-35.5); Mean Corpuscular Hemoglobin 29.7 pg (28.0-33.3); Mean Corpuscular Volume 101.7 fL (83.0-100.0); Mean Platelet Volume 10.1 fL (9.4-12.4); Monocytes # 0.4 K/mcL (0.0-1.3); Monocytes % 3.6 %; Platelet Count 119 K/mcL (140-400); Red Blood Count 2.32 M/mcL (4.19-5.50); Red Cell Distribution Width 19.7 % (11.5-14.5); Segmented Neutrophils % 87.8 %
[2021-11-30 01:20] LABS: Basophils # 0.1 K/mcL (0.0-0.2); Eosinophils # 0.2 K/mcL (0.0-0.6); Lymphocytes # 0.5 K/mcL (0.6-4.6); Neutrophils # 8.8 K/mcL (1.6-8.9)
[2021-11-30 01:36] LABS: Calcium 7.6 mg/dL (8.6-10.3); Potassium 4.2 mEq/L (3.5-5.1)
[2021-11-30] MEDS: Pantoprazole 40 MG VIAL IVP SCH ×2 (05:44→17:18)
[2021-11-30] MEDS: Insulin LISPRO 300 UNITS/3 ML VIAL SUBQ SCH ×4 (07:14→21:19)
[2021-11-30] MEDS ORDERED: 0.9 % Sodium Chloride 250 ML ONE (10:10)
[2021-11-30] MEDS: Mycophenolate Sodium (DR) 180 MG TABLET.DR PO SCH ×2 (10:46→21:18)
[2021-11-30] MEDS: *HR* Amiodarone 200 MG TABLET PO SCH (10:46)
[2021-11-30] MEDS: Fluconazole 100 MG TABLET PO SCH (10:46)
[2021-11-30] MEDS: carvediloL 25 MG TABLET PO SCH ×2 (10:46→17:19)
[2021-11-30] MEDS: predniSONE 5 MG TABLET PO SCH (10:47)
[2021-11-30] MEDS ORDERED: *HR* Propofol 200 MG/20 ML VIAL IVP ONE ×2 (12:32→13:20)
[2021-11-30] MEDS ORDERED: Simethicone 40 MG/0.6 ML MLS IR ONE (13:09)
[2021-11-30] MEDS ORDERED: Lidocaine -MPF 2% 5 ML VIAL ONE (13:10)
[2021-11-30] MEDS: Cyanocobalamin (B-12) 1,000 MCG TABLET PO SCH (14:18)
[2021-11-30 14:58] LABS: Hematocrit 25.2 % (37.5-50.1); Hemoglobin 7.3 g/dL (12.9-16.9)
[2021-11-30] MEDS ORDERED: SODIUM CHLORIDE/NAHCO3/KCL/PEG 4,000 ML SOLN.RECON PO ONE (17:00)
[2021-11-30] MEDS: Latanoprost 2.5 ML BOTTLE LEFT EYE SCH (21:19)
[2021-12-01 01:56] LABS: Hematocrit 26.7 % (37.5-50.1); Hemoglobin 7.8 g/dL (12.9-16.9); Mean Corpuscular HGB Conc 29.2 g/dL (31.6-35.5); Mean Corpuscular Hemoglobin 29.2 pg (28.0-33.3); Mean Platelet Volume 10.8 fL (9.4-12.4); Platelet Count 132 K/mcL (140-400); Red Blood Count 2.67 M/mcL (4.19-5.50); Red Cell Distribution Width 19.7 % (11.5-14.5); White Blood Count 7.5 K/mcL (4.3-11.1)
[2021-12-01 02:13] LABS: Calcium 7.8 mg/dL (8.6-10.3); Potassium 4.4 mEq/L (3.5-5.1)
[2021-12-01] MEDS: Pantoprazole 40 MG VIAL IVP SCH ×2 (06:22→17:58)
[2021-12-01] MEDS: Insulin LISPRO 300 UNITS/3 ML VIAL SUBQ SCH ×4 (08:04→20:21)
[2021-12-01] MEDS: *HR* Amiodarone 200 MG TABLET PO SCH (08:16)
[2021-12-01] MEDS: predniSONE 5 MG TABLET PO SCH (08:16)
[2021-12-01] MEDS: Cyanocobalamin (B-12) 1,000 MCG TABLET PO SCH (08:16)
[2021-12-01] MEDS: Fluconazole 100 MG TABLET PO SCH (08:16)
[2021-12-01] MEDS: carvediloL 25 MG TABLET PO SCH ×2 (08:17→17:58)
[2021-12-01] MEDS: Mycophenolate Sodium (DR) 180 MG TABLET.DR PO SCH ×2 (08:17→20:14)
[2021-12-01] MEDS ORDERED: *HR* Propofol 200 MG/20 ML VIAL IVP ONE (13:08)
[2021-12-01] MEDS ORDERED: Lidocaine -MPF 2% 5 ML VIAL ONE (13:09)
[2021-12-01] MEDS ORDERED: Ipratropium/Albuterol Neb 3 ML ONE (13:43)
[2021-12-01] MEDS ORDERED: EPHEDrine 50 MG/ML VIAL ONE (14:15)
[2021-12-01] MEDS: Latanoprost 2.5 ML BOTTLE LEFT EYE SCH (20:15)
[2021-12-02] MEDS: Pantoprazole 40 MG VIAL IVP SCH (06:08)
[2021-12-02] MEDS: Insulin LISPRO 300 UNITS/3 ML VIAL SUBQ SCH ×4 (07:41→20:13)
[2021-12-02] MEDS: carvediloL 25 MG TABLET PO SCH ×2 (08:32→18:29)
[2021-12-02] MEDS: Mycophenolate Sodium (DR) 180 MG TABLET.DR PO SCH ×2 (08:32→20:08)
[2021-12-02] MEDS: Cyanocobalamin (B-12) 1,000 MCG TABLET PO SCH (08:32)
[2021-12-02] MEDS: predniSONE 5 MG TABLET PO SCH (08:32)
[2021-12-02] MEDS: Fluconazole 100 MG TABLET PO SCH (08:32)
[2021-12-02] MEDS: *HR* Amiodarone 200 MG TABLET PO SCH (08:32)
[2021-12-02 13:26] LABS: Hematocrit 29.4 % (37.5-50.1); Hemoglobin 8.5 g/dL (12.9-16.9); Mean Corpuscular HGB Conc 28.9 g/dL (31.6-35.5); Mean Corpuscular Hemoglobin 28.9 pg (28.0-33.3); Mean Platelet Volume 10.8 fL (9.4-12.4); Platelet Count 129 K/mcL (140-400); Red Blood Count 2.94 M/mcL (4.19-5.50); Red Cell Distribution Width 18.9 % (11.5-14.5); White Blood Count 7.8 K/mcL (4.3-11.1)
[2021-12-02 13:44] LABS: Albumin 2.7 g/dL (3.5-5.7); Albumin/Globulin Ratio 1.4 (1.1-2.2); Bilirubin,Total 0.5 mg/dL (0.3-1.0); Calcium 7.7 mg/dL (8.6-10.3); Globulin 1.9 g/dL (2.4-3.5); Magnesium 1.9 mg/dL (1.6-2.6); Potassium 4.1 mEq/L (3.5-5.1); Total Protein 4.6 g/dL (6.4-8.9)
[2021-12-02] MEDS: Latanoprost 2.5 ML BOTTLE LEFT EYE SCH (20:10)
[2021-12-03 05:00] LABS: Hematocrit 28.9 % (37.5-50.1); Hemoglobin 8.5 g/dL (12.9-16.9); Mean Corpuscular HGB Conc 29.4 g/dL (31.6-35.5); Mean Corpuscular Hemoglobin 29.2 pg (28.0-33.3); Mean Corpuscular Volume 99.3 fL (83.0-100.0); Mean Platelet Volume 11.4 fL (9.4-12.4); Platelet Count 142 K/mcL (140-400); Red Blood Count 2.91 M/mcL (4.19-5.50); Red Cell Distribution Width 18.6 % (11.5-14.5); White Blood Count 7.1 K/mcL (4.3-11.1)
[2021-12-03 05:16] LABS: Calcium 7.5 mg/dL (8.6-10.3); Potassium 4.1 mEq/L (3.5-5.1)
[2021-12-03] MEDS: Insulin LISPRO 300 UNITS/3 ML VIAL SUBQ SCH ×4 (07:17→21:21)
[2021-12-03] MEDS: Cyanocobalamin (B-12) 1,000 MCG TABLET PO SCH (08:08)
[2021-12-03] MEDS: Mycophenolate Sodium (DR) 180 MG TABLET.DR PO SCH ×2 (08:08→21:30)
[2021-12-03] MEDS: *HR* Amiodarone 200 MG TABLET PO SCH (08:09)
[2021-12-03] MEDS: predniSONE 5 MG TABLET PO SCH (08:09)
[2021-12-03] MEDS: Fluconazole 100 MG TABLET PO SCH (08:09)
[2021-12-03] MEDS: carvediloL 25 MG TABLET PO SCH ×3 (08:09→18:31)
[2021-12-03] MEDS: QUEtiapine Fumarate 25 MG TABLET PO SCH ×2 (11:45→21:31)
[2021-12-03] MEDS ORDERED: *HR* LORazepam 2 MG/ML VIAL IVP ONE (14:52)
[2021-12-03] MEDS: D10% in Water 500 ML IVC SCH (18:28)
[2021-12-03] MEDS: Latanoprost 2.5 ML BOTTLE LEFT EYE SCH (21:31)
[2021-12-04 02:49] LABS: Hepatitis B Surface Antibody < 3.10 mIU/mL
[2021-12-04 03:01] LABS: Hepatitis B Surface Antigen Nonreactive (Nonreactive)
[2021-12-04 03:29] LABS: HIV-1&2 Antibody & p24 Ag Nonreactive (Nonreactive); Hepatitis C Virus Antibody Nonreactive (Nonreactive)
[2021-12-04] MEDS: D10% in Water 500 ML IVC SCH ×2 (04:22→15:05)
[2021-12-04] MEDS: Insulin LISPRO 300 UNITS/3 ML VIAL SUBQ SCH ×4 (07:36→22:24)
[2021-12-04] MEDS: carvediloL 25 MG TABLET PO SCH (07:52)
[2021-12-04] MEDS ORDERED: carvediloL 6.25 MG TABLET PO ONE (08:00)
[2021-12-04] MEDS: predniSONE 5 MG TABLET PO SCH (08:52)
[2021-12-04] MEDS: QUEtiapine Fumarate 25 MG TABLET PO SCH ×2 (08:52→22:30)
[2021-12-04] MEDS: Fluconazole 100 MG TABLET PO SCH (08:52)
[2021-12-04] MEDS: Cyanocobalamin (B-12) 1,000 MCG TABLET PO SCH (08:54)
[2021-12-04] MEDS: *HR* Amiodarone 200 MG TABLET PO SCH (08:54)
[2021-12-04] MEDS: Mycophenolate Sodium (DR) 180 MG TABLET.DR PO SCH ×2 (08:56→22:30)
[2021-12-04] MEDS: Latanoprost 2.5 ML BOTTLE LEFT EYE SCH (22:31)
[2021-12-05] MEDS: D10% in Water 500 ML IVC SCH ×2 (06:46→08:46)
[2021-12-05] MEDS: Insulin LISPRO 300 UNITS/3 ML VIAL SUBQ SCH ×4 (07:43→20:07)
[2021-12-05 07:48] LABS: Hematocrit 30.4 % (37.5-50.1); Hemoglobin 8.9 g/dL (12.9-16.9); Mean Corpuscular HGB Conc 29.3 g/dL (31.6-35.5); Mean Corpuscular Hemoglobin 28.8 pg (28.0-33.3); Mean Corpuscular Volume 98.4 fL (83.0-100.0); Mean Platelet Volume 10.7 fL (9.4-12.4); Platelet Count 137 K/mcL (140-400); Red Blood Count 3.09 M/mcL (4.19-5.50); Red Cell Distribution Width 18.5 % (11.5-14.5); White Blood Count 6.8 K/mcL (4.3-11.1)
[2021-12-05] MEDS: *HR* Amiodarone 200 MG TABLET PO SCH (07:48)
[2021-12-05] MEDS: Fluconazole 100 MG TABLET PO SCH (07:48)
[2021-12-05] MEDS: QUEtiapine Fumarate 25 MG TABLET PO SCH ×2 (07:48→20:09)
[2021-12-05] MEDS: predniSONE 5 MG TABLET PO SCH (07:48)
[2021-12-05] MEDS: amLODIPine 5 MG TABLET PO SCH (07:48)
[2021-12-05] MEDS: Cyanocobalamin (B-12) 1,000 MCG TABLET PO SCH (07:48)
[2021-12-05] MEDS: Mycophenolate Sodium (DR) 180 MG TABLET.DR PO SCH ×2 (07:48→20:08)
[2021-12-05 08:11] LABS: Calcium 7.8 mg/dL (8.6-10.3); Magnesium 1.9 mg/dL (1.6-2.6); Potassium 4.5 mEq/L (3.5-5.1)
[2021-12-05 08:15] LABS: Thyroid Stimulating Hormone 22.504 mcIU/mL (0.340-5.600)
[2021-12-05] MEDS: carvediloL 6.25 MG TABLET PO SCH (16:42)
[2021-12-05] MEDS: Latanoprost 2.5 ML BOTTLE LEFT EYE SCH (20:10)
[2021-12-06 05:27] LABS: Basophils % 0.6 %; Eosinophils # 0.2 K/mcL (0.0-0.6); Hematocrit 29.9 % (37.5-50.1); Hemoglobin 8.7 g/dL (12.9-16.9); Immature Granulocytes % 0.4 % (0-4); Lymphocytes # 0.6 K/mcL (0.6-4.6); Lymphocytes % 9.3 %; Mean Corpuscular HGB Conc 29.1 g/dL (31.6-35.5); Mean Corpuscular Hemoglobin 28.8 pg (28.0-33.3); Mean Platelet Volume 11.5 fL (9.4-12.4); Monocytes # 0.4 K/mcL (0.0-1.3); Monocytes % 6.4 %; Neutrophils # 5.5 K/mcL (1.6-8.9); Platelet Count 133 K/mcL (140-400); Red Blood Count 3.02 M/mcL (4.19-5.50); Red Cell Distribution Width 18.4 % (11.5-14.5); Segmented Neutrophils % 80.3 %; White Blood Count 6.9 K/mcL (4.3-11.1)
[2021-12-06 05:48] LABS: Calcium 7.6 mg/dL (8.6-10.3); Potassium 4.4 mEq/L (3.5-5.1)
[2021-12-06] MEDS: Mycophenolate Sodium (DR) 180 MG TABLET.DR PO SCH (07:41)
[2021-12-06] MEDS: amLODIPine 5 MG TABLET PO SCH (07:41)
[2021-12-06] MEDS: Cyanocobalamin (B-12) 1,000 MCG TABLET PO SCH (07:41)
[2021-12-06] MEDS: carvediloL 6.25 MG TABLET PO SCH ×2 (07:41→17:41)
[2021-12-06] MEDS: QUEtiapine Fumarate 25 MG TABLET PO SCH (07:42)
[2021-12-06] MEDS: Fluconazole 100 MG TABLET PO SCH (07:42)
[2021-12-06] MEDS: predniSONE 5 MG TABLET PO SCH (07:42)
[2021-12-06] MEDS: *HR* Amiodarone 200 MG TABLET PO SCH (07:42)
[2021-12-06] MEDS: Insulin LISPRO 300 UNITS/3 ML VIAL SUBQ SCH ×3 (07:43→16:37)
[2021-12-06 16:02] VITALS: O2SAT 99
[2021-12-06 17:35] LABS: Adenovirus Not Detected (Not Detect); Bordetella Pertussis Not Detected (Not Detect); Chlamydophila pneumoniae Not Detected (Not Detect); Coronavirus 229E Not Detected (Not Detect); Coronavirus HKU1 Not Detected (Not Detect); Coronavirus NL63 Not Detected (Not Detect); Coronavirus OC43 Not Detected (Not Detect); Human Metapneumovirus Not Detected (Not Detect); Human Rhinovirus/Enterovirus Not Detected (Not Detect); Influenza A Subtype 2009 H1 Not Detected (Not Detect); Influenza B Not Detected (Not Detect); Mycoplasma pneumoniae Not Detected (Not Detect); Parainfluenza Virus 1 Not Detected (Not Detect); Parainfluenza Virus 2 Not Detected (Not Detect); Parainfluenza Virus 3 Not Detected (Not Detect); Parainfluenza Virus 4 Not Detected (Not Detect); Respiratory Syncytial Virus Not Detected (Not Detect); SARS-CoV-2 Not Detected (Not Detect)
[2021-12-06 18:58] VITALS: BP 153/67; PULSE 76; TEMP 96.1
== END 2021-12-06 21:17 | DRG 377 ==
LOC: EMEROOARM 14:02 → SUATTDRO 18:54 → 2ANU 18:54
PROVIDERS: ADMIT Student in an Organized Health Care Education/Training Program; ATTEND Internal Medicine